=== PATIENT | female | born 1935 | race Caucasian/White ===

== ENCOUNTER → 2016-09-28 | Outpatient (CLI) | payer BC ==
[~2016-09-28] MED LIST: ASPI-232 PO; CHOL100010 PO; DICL1GEL12 TOP; GABA-113 PO; GLC500 PO; HYDR-4380 PO; MTR800 PO; NXM/40 PO; PRM/45 PO; SIMV40TA2 PO; SITA100T3 PO; TRIA37.5 PO
== END | disposition home or self-care (01) ==
LOC: C.RDSM 07:00
PROVIDERS: ATTEND Physical Medicine & Rehabilitation Sports Medicine
DX: M17.11 Unilateral primary osteoarthritis, right knee (principal)

== ENCOUNTER 2017-06-29 10:30 | Emergency (ER) | payer BC ==
[~2017-06-29] VITALS: Ht 157.5 cm; Wt 74.0 kg
[2017-06-29 10:38] VITALS: TEMP 36.6; Ht 157.5 cm; Wt 74.0 kg
[2017-06-29 11:09] LABS: HEMATOCRIT 31.7 % (37-47); HEMOGLOBIN 9.8 g/dL (12.0-16.0); MEAN CELL VOLUME 79.4 fL (80-100); MEAN CORPUSCULAR HEMOGLOBIN 24.6 pg (25-34); MEAN CORPUSCULAR HGB CONC 30.9 g/dl (32-36); MEAN PLATELET VOLUME 11.4 fL (7.4-10.4); PLATELET COUNT 213 K/uL (130-400); RED CELL DISTRIBUTION WIDTH CV 16.5 % (11.5-14.5); WHITE BLOOD COUNT 3.79 K/uL (4.8-10.8)
[2017-06-29 11:30] LABS: BASO % 0.3 %; BASO ABS # 0.01 K/uL (0-0.2); EOS % 0.3 %; EOS ABS # 0.01 K/uL (0-0.5); LYMPH % 25.3 %; LYMPH ABS # 0.96 K/uL (1.2-3.4); MONO % 8.2 %; MONO ABS # 0.31 K/uL (0.11-0.59); NEUT % 65.9 %
[2017-06-29 11:34] LABS: ALBUMIN 3.1 gm/dl (3.4-5.0); CALCIUM 7.5 mg/dl (8.5-10.1); CREATININE 1.04 mg/dl (0.60-1.20); POTASSIUM 2.5 mmol/L (3.5-5.1); TOTAL PROTEIN 6.8 gm/dl (6.4-8.2)
[2017-06-29] MEDS ORDERED: METOCLOPRAMIDE HCL INJ 5 MG/ML 2 ML VIAL IV. STA (12:23)
[2017-06-29] MEDS ORDERED: CALCIUM GLUCONATE 10% 10 ML VIAL IV STA (12:23)
[2017-06-29] MEDS ORDERED: SODIUM CHLORIDE 0.9% 1000ML 1,000 ML IV STA (12:23)
[2017-06-29] MEDS ORDERED: POTASSIUM CHLORIDE 10 MEQ / 100ML WTR IV STA (12:23)
[2017-06-29] MEDS ORDERED: POTASSIUM CHLORIDE 20 MEQ TABCR PO STA (12:23)
[2017-06-29] MEDS ORDERED: CHOL1000 PO (12:26)
[2017-06-29] MEDS ORDERED: AMLO-110 PO (12:27)
[2017-06-29] MEDS ORDERED: OPTIRAY 320 IV PRN (12:45)
--- NOTE | 2017-06-29 13:35 | DIAGNOSTIC IMAGING REPORT ---
CT OF THE ABDOMEN AND PELVIS WITH CONTRAST CLINICAL HISTORY: Bilateral flank pain, nausea and vomiting. COMPARISON STUDY: CT of the abdomen and pelvis January 17, 2016. TECHNIQUE: Following IV administration of 90 mL of Optiray-320, axial images of the abdomen and pelvis were obtained from the lung bases to the proximal femurs. Images were reviewed in the axial, sagittal, and coronal planes. IV contrast was administered without complication. A dose lowering technique was utilized adhering to the principles of ALARA. CT DOSE: 546.74 mGy.cm FINDINGS: The liver is cirrhotic and moderately enlarged. Innumerable hypodense hepatic lesions likely reflect cysts or biliary hamartomas. Sensitivity for detection of hypervascular lesions is diminished on this portal venous phase exam but no suspicious hepatic lesions are identified. 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 There is no hydronephrosis. The spleen, adrenal glands and pancreas are unremarkable. There is no biliary or pancreatic ductal dilatation status post cholecystectomy. The appendix is normal. There is colonic diverticulosis without evidence for acute diverticulitis. A 2 cm water attenuation focus along the posterior aspect the bladder is unchanged. This could reflect a small bladder diverticulum. There are no suspicious osseous lesions. IMPRESSION: 1. No acute process within the abdomen or pelvis. 2. Cirrhotic liver. 3. Innumerable hypodense hepatic lesions which are similar to prior exam. 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 4. Colonic diverticulosis without evidence for acute diverticulitis. Electronically signed by: Hussain Saldana M.D. 06/29/2017 1:34 PM Dictated Date/Time: 06/29/2017 1:25 PM
[2017-06-29] MEDS ORDERED: CEFTRIAXONE SOD INJ 1 GM ADDVIAL IV STA (14:45)
[2017-06-29] MEDS ORDERED: TRIAMTERENE/HCTZ 37.5/25MG CAP PO STA (15:15)
[2017-06-29] MEDS ORDERED: AMLODIPINE BESYLATE 5 MG TAB PO ONE (15:15)
[2017-06-29] MEDS ORDERED: MAGNESIUM OXIDE 400 MG TAB PO STA (15:49)
[2017-06-29] MEDS ORDERED: CEPH-571 PO (16:04)
[2017-06-29] MEDS ORDERED: ONDA4TAB65 PO (16:04)
--- NOTE | 2017-06-29 16:05 | EMERGENCY ROOM VISIT NOTE ---
History Report prepared by Ade: Ulises Box Under the Supervision of: Dr. Zion Conner M.D. First contact with patient: 11:51 Chief Complaint: ABDOMINAL PAIN Stated Complaint: ILLNESS Nursing Triage Summary: pt to the ED via EMS from home with c/o n/v/d with upper abd pain since wednesday pt has a hx of DM and has been trying home OTC meds to help with GI sx with no relief per EMS abd soft History of Present Illness The patient is a 81 year old white female with a past medical history of ( insulin and medication dependent) Type II Diabetes and cholecystectomy who presents to the ED with a cc of constant upper abdominal pain beginning two days ago. She rates her pain as a 6/10 in severity. Positive nausea, vomiting, diarrhea (x2 days). Vomiting and diarrhea improved yesterday, nausea has persisted. No known sick contacts. No recent antibiotic use. No use of stream or well water. No recent trauma. No flu shot this year. Negative bloody stool, or bloody vomit. Patient drinks alcohol occasionally - most recent drink three days ago. Source of History: patient Onset: Two days ago Position: abdomen (upper) Symptom Intensity: 6/10 Timing: constant Associated Symptoms: + nausea, + vomiting (improved yesterday), + diarrhea ( improved yesterday), No hematochezia Note: Negative: bloody vomit. Review of Systems See HPI for pertinent positives and negatives. A total of ten systems were reviewed and were otherwise negative. Past Medical & Surgical Medical Problems: (1) Diabetes (2) Incisional hernia Surgical Problems: (1) S/P cholecystectomy Family History No pertinent family history stated. Social History Smoking Status: Never Smoker Current/Historical Medications Scheduled Amlodipine (Norvasc), 5 MG PO DAILY Aspirin (Aspir-81), 81 MG PO DAILY Cephalexin (Keflex), 1 CAP PO BID Cholecalciferol (Vitamin D3), 1,000 UNITS PO DAILY Esomeprazole Magnesium (Nexium), 40 MG PO HS Estrogens, Conjugated (Premarin), 0.9 MG PO DAILY Gabapentin (Neurontin), 300 MG PO TID Ibuprofen (Ibuprofen), 800 MG PO TID Metformin HCl (Metformin HCl), 1,000 MG PO BID Simvastatin (Zocor), 40 MG PO QPM Sitagliptin Phosphate (Januvia), 100 MG PO DAILY Triamterene/Hctz (Dyazide 37.5MG/25MG), 1 TAB PO DAILY Scheduled PRN Diclofenac Sodium (Topical) (Voltaren 1% Top Gel), 100 GM TOP BID PRN for Pain Ondansetron Hcl (Zofran), 1 TAB PO Q6H PRN for Nausea Allergies Coded Allergies: No Known Allergies (Unverified , 06/29/17) Physical Exam Vital Signs Date Time Temp Pulse Resp B/P (MAP) Pulse Ox O2 Delivery O2 Flow Rate FiO2 06/29/17 16:30 78 18 200/99 96 Room Air 06/29/17 15:03 74 18 196/86 95 Room Air 06/29/17 13:33 72 18 188/67 94 Room Air 06/29/17 13:14 77 06/29/17 12:38 74 16 171/74 95 Room Air 06/29/17 10:38 36.6 78 16 177/66 94 Room Air Physical Exam GENERAL: Awake, alert, well-appearing, NAD HENT: Normocephalic, atraumatic. EYES: Normal conjunctiva. Sclera non-icteric. NECK: Supple. No nuchal rigidity. FROM. RESPIRATORY: CTAB, no rhonchi, wheezing, crackles CARDIAC: RRR, no MRG ABDOMEN: Soft, BS+. Mild left sided abdominal discomfort. Non-surgical abdomen. MSK: No chest wall TTP, no LE edema NEURO: GCS 15, CN 2-12 intact, moves all 4s on command SKIN: No rash or jaundice noted. Medical Decision & Procedures ER Provider Diagnostic Interpretation: Radiology results as stated below per my review and radiologist interpretation: CT OF THE ABDOMEN AND PELVIS WITH CONTRAST FINDINGS: The liver is cirrhotic and moderately enlarged. Innumerable hypodense hepatic lesions likely reflect cysts or biliary hamartomas. Sensitivity for detection of hypervascular lesions is diminished on this portal venous phase exam but no suspicious hepatic lesions are identified. 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 There is no hydronephrosis. The spleen, adrenal glands and pancreas are unremarkable. There is no biliary or pancreatic ductal dilatation status post cholecystectomy. The appendix is normal. There is colonic diverticulosis without evidence for acute diverticulitis. A 2 cm water attenuation focus along the posterior aspect the bladder is unchanged. This could reflect a small bladder diverticulum. There are no suspicious osseous lesions. IMPRESSION: 1. No acute process within the abdomen or pelvis. 2. Cirrhotic liver. 3. Innumerable hypodense hepatic lesions which are similar to prior exam. 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 4. Colonic diverticulosis without evidence for acute diverticulitis. Electronically signed by: Hussain Saldana M.D. 06/29/2017 1:34 PM Laboratory Results 06/29/17 10:50 Red Blood Count 3.99, Mean Corpuscular Volume 79.4, Mean Corpuscular Hemoglobin 24.6, Mean Corpuscular Hemoglobin Concent 30.9, Mean Platelet Volume 11.4, Neutrophils (%) (Auto) 65.9, Lymphocytes (%) (Auto) 25.3, Monocytes (%) (Auto) 8.2, Eosinophils (%) (Auto) 0.3, Basophils (%) (Auto) 0.3, Neutrophils # (Auto) 2.50, Lymphocytes # (Auto) 0.96, Monocytes # (Auto) 0.31, Eosinophils # (Auto) 0.01, Basophils # (Auto) 0.01 06/29/17 10:50 Test 06/29/17 10:50 06/29/17 13:43 White Blood Count 3.79 K/uL (4.8-10.8) Red Blood Count 3.99 M/uL (4.2-5.4) Hemoglobin 9.8 g/dL (12.0-16.0) Hematocrit 31.7 % (37-47) Mean Corpuscular Volume 79.4 fL (80-100) Mean Corpuscular Hemoglobin 24.6 pg (25-34) Mean Corpuscular Hemoglobin Concent 30.9 g/dl (32-36) Platelet Count 213 K/uL (130-400) Mean Platelet Volume 11.4 fL (7.4-10.4) Neutrophils (%) (Auto) 65.9 % Lymphocytes (%) (Auto) 25.3 % Monocytes (%) (Auto) 8.2 % Eosinophils (%) (Auto) 0.3 % Basophils (%) (Auto) 0.3 % Neutrophils # (Auto) 2.50 K/uL (1.4-6.5) Lymphocytes # (Auto) 0.96 K/uL (1.2-3.4) Monocytes # (Auto) 0.31 K/uL (0.11-0.59) Eosinophils # (Auto) 0.01 K/uL (0-0.5) Basophils # (Auto) 0.01 K/uL (0-0.2) RDW Standard Deviation 48.0 fL (36.4-46.3) RDW Coefficient of Variation 16.5 % (11.5-14.5) Immature Granulocyte % (Auto) 0.0 % Immature Granulocyte # (Auto) 0.00 K/uL (0.00-0.02) Hypochromasia PRESENT Anion Gap 11.0 mmol/L (3-11) Est Creatinine Clear Calc Drug Dose 41.3 ml/min Estimated GFR () 59.2 Estimated GFR (Non- 51.1 BUN/Creatinine Ratio 29.6 (10-20) Calcium Level 7.5 mg/dl (8.5-10.1) Magnesium Level 1.7 mg/dl (1.8-2.4) Total Bilirubin 0.3 mg/dl (0.2-1) Aspartate Amino Transf (AST/SGOT) 273 U/L (15-37) Alanine Aminotransferase (ALT/SGPT) 178 U/L (12-78) Alkaline Phosphatase 109 U/L (45-117) Total Protein 6.8 gm/dl (6.4-8.2) Albumin 3.1 gm/dl (3.4-5.0) Globulin 3.7 gm/dl (2.5-4.0) Albumin/Globulin Ratio 0.8 (0.9-2) Lipase 151 U/L (73-393) Beta-Hydroxybutyric Acid 14.05 mg/dL (0.2-2.81) Urine Color YELLOW Urine Appearance CLOUDY (CLEAR) Urine pH 5.5 (4.5-7.5) Urine Specific [place] 1.028 (1.000-1.030) Urine Protein 2+ (NEG) Urine Glucose (UA) 3+ (NEG) Urine Ketones 2+ (NEG) Urine Occult Blood NEG (NEG) Urine Nitrite NEG (NEG) Urine Bilirubin NEG (NEG) Urine Urobilinogen NEG (NEG) Urine Leukocyte Esterase NEG (NEG) Urine WBC (Auto) >30 /hpf (0-5) Urine RBC (Auto) 0-4 /hpf (0-4) Urine Hyaline Casts (Auto) 0 /lpf (0-5) Urine Epithelial Cells (Auto) 0-5 /lpf (0-5) Urine Bacteria (Auto) 4+ (NEG) Urine Yeast (Auto) (NONE PRSENT) Laboratory results reviewed by me Medications Administered Medications (Trade) Dose Ordered Sig/Allan Route Start Time Stop Time Status Last Admin Dose Admin Sodium Chloride 1,000 ml @ 999 mls/hr Q1H1M STAT IV 06/29/17 12:23 06/29/17 13:23 DC 06/29/17 12:45 999 MLS/HR Potassium Chloride (Klor-Con Tab) 40 meq NOW STAT PO 06/29/17 12:23 06/29/17 12:27 DC 06/29/17 12:52 40 MEQ Metoclopramide HCl (Reglan Inj) 10 mg NOW STAT IV. 06/29/17 12:23 06/29/17 12:27 DC 06/29/17 12:45 10 MG Calcium Gluconate (Calcium Gluconate 10%) 2,000 mg NOW STAT IV 06/29/17 12:23 06/29/17 12:27 DC 06/29/17 12:45 2,000 MG Potassium Chloride (Kcl 10 Meq / Wtr) 10 meq NOW STAT IV 06/29/17 12:23 06/29/17 12:27 DC 06/29/17 12:45 10 MEQ Ceftriaxone Sodium (Rocephin Inj) 1 gm NOW STAT IV 06/29/17 14:45 06/29/17 14:46 DC 06/29/17 15:13 1 GM Amlodipine Besylate (Norvasc Tab) 5 mg NOW ONCE PO 06/29/17 15:15 06/29/17 15:21 DC 06/29/17 15:54 5 MG Triamterene/HCTZ (Dyazide 37.5/25 Mg Cap) 1 cap ONE STAT PO 06/29/17 15:15 06/29/17 15:21 DC 06/29/17 15:54 1 CAP Magnesium Oxide (Mag-Ox Tab) 800 mg ONE STAT PO 06/29/17 15:49 06/29/17 15:50 DC 06/29/17 16:00 800 MG Ondansetron HCl (Zofran Odt) 4 mg NOW STAT PO 06/29/17 16:07 06/29/17 16:15 DC 06/29/17 16:46 4 MG ED Course 1204: The patient was evaluated in room C9. A complete history and physical exam was performed. 1327: I reassessed the patient. She feels better. She will PO challenge. 1625: I reevaluated the patient. She has tolerated PO. Discussed results and discharge instructions: she verbalized understanding and agreement. The patient is ready for discharge. Medical Decision The patient is a 81 year old white female with a past medical history of ( insulin and medication dependent) Type II Diabetes and cholecystectomy who presents to the ED with a cc of constant upper abdominal pain beginning two days ago. Differential diagnosis: Etiologies such as appendicitis, diverticulitis, PUD, biliary pathology, UTI, pancreatitis, obstruction, mesenteric ischemia, aortic pathology, infections, inflammatory bowel disease, renal colic, as well as others were entertained. Patient was seen and evaluated the bedside. Patient had complained of some upper abdominal discomfort along with some associated nausea and vomiting. Patient states that her nausea improved in route when she was given some Zofran. Patient did have blood work completed along with CT of the abdomen pelvis IVF, and antiemetics. Patient's blood work did show that the patient had mild leukopenia. Patient does have anemia but this appears chronic and fairly stable as her last hemoglobin was around 11 2 years prior, and today it is in the high nines. Patient did have noted hypokalemia hyperglycemia, hypocalcemia. Her lecture lites were repleted. Patient was given with p.o. and IV potassium. Magnesium was also checked. This was low and the patient was repleted with magnesium as well. Patient did have some hyperglycemia but the patient was not taking her medications for diabetes. The patient has a normal bicarb and anion gap is normal less likely DKA. Patient did receive IV fluids. Patient did have subsequent checks of p.o. intolerance. Patient was able tolerate p.o. several times. The patient's UA was questionable for a UTI as the patient was given Rocephin. Patient was able to tolerate her by mouth medications at the bedside. Patient does have elevated LFTs and the patient's CT did show liver cirrhosis. This appears somewhat chronic in nature. Patient does not have elevated bilirubin. Patient does not have a positive Prince sign and I do not believe that she needs further evaluation with a gallbladder ultrasound. The patient's LFTs have been chronic in the past. I did discuss the patient that she should need a recheck and to watch for signs of jaundice. She was also counseled on stopping her cholesterol medication being her statin, and avoiding alcohol and Tylenol use. Patient is agreeable to the plan of care and the patient was given outpatient prescriptions for antibiotics as well as antiemetics. Patient was told to return if she had worsening symptoms. I believe that the patient is suitable for outpatient follow-up and treatment at this time as the patient is able tolerate p.o. and her lecture lites have been repleted along with her infection being treated. Patient was given strict follow-up, discharge, and return precautions. All questions were answered. Patient was deemed suitable for outpatient follow-up at this time. Patient agreed with the plan of care and was safely discharged home. Medication Reconcilliation Current Medication List: was personally reviewed by me Blood Pressure Screening Patient's blood pressure: Elevated blood pressure Blood pressure disposition: Referred to PCP Impression Primary Impression: Acute gastroenteritis Additional Impressions: Anemia Hypokalemia Hypocalcemia Hypomagnesemia Hyperglycemia UTI (urinary tract infection) Scribe Attestation The scribe's documentation has been prepared under my direction and personally reviewed by me in its entirety. I confirm that the note above accurately reflects all work, treatment, procedures, and medical decision making performed by me. Departure Information Dispostion Home / Self-Care Prescriptions Ondansetron Hcl (ZOFRAN) 4 Mg Tab 1 TAB PO Q6H Y for Nausea, #10 TAB 1 Refill Prov: Zion Conner M.D. 06/29/17 Cephalexin (KEFLEX) 500 Mg Cap 1 CAP PO BID for 7 Days, #14 CAP Prov: Zion Conner M.D. 06/29/17 Referrals Martinez Michaud M.D. (PCP) Patient Instructions ED Diet High Potassium, ED Hypocalcemia, ED UTI Cystitis Female, Hypokalemia Dc , Hypomagnesemia Dc, My [facility] Additional Instructions Please return to the emergency department if you have worsening or recurrent symptoms not amenable to at-home treatment. Please call for a follow-up appointment with her primary care physician. Please take your medications as prescribed. If you have other concerns and/or complaints please feel free to also call your primary care physician's office or return the ED for further evaluation, management, and treatment. Take your medications as prescribed. If taking an antibiotic consider taking a probiotic and/or eating yogurt, but at the least, please take with food as it can cause upset stomach. Your liver enzymes were elevated today. They have been elevated in the past. Please call your PCP for repeat liver function testing. In the mean time, please avoid alcohol and tylenol. Stop taking your cholesterol medicine until you see your PCP. You did have low potassium, calcium, and magnesium you may take a daily supplement or increases in your diet. Continue a more bland diet and is your able you may advance it as tolerated. Consider starting with clear liquids, soups, and broths. You have been examined and treated today on an emergency basis only. This is not a substitute for, or an effort to provide, complete comprehensive medical care. It is impossible to recognize and treat all injuries or illnesses in a single emergency department visit. It is therefore important that you follow up closely with [facility], your PCP, and/or your specialist(s). Call as soon as possible for an appointment. Thank you for your time and consideration. I look forward to speaking with you again soon. Please don't hesitate to call us if you have any questions. Problem Qualifiers Additional Impressions: Anemia Anemia type: unspecified type Qualified Codes: D64.9 - Anemia, unspecified UTI (urinary tract infection) Urinary tract infection type: acute cystitis Hematuria presence: without hematuria Qualified Codes: N30.00 - Acute cystitis without hematuria
[2017-06-29] MEDS ORDERED: ONDANSETRON 4MG OD TAB PO STA (16:07)
[2017-06-29 16:30] VITALS: BP 200/99; PULSE 78; O2SAT 96
== END 2017-06-29 16:49 | disposition home or self-care (01) ==
LOC: EDBD 10:30 → C.EDC 10:32
DX: K52.9 Noninfective gastroenteritis and colitis, unspecified (principal); D64.9 Anemia, unspecified; E11.65 Type 2 diabetes mellitus with hyperglycemia; E87.6 Hypokalemia; E83.51 Hypocalcemia; E83.42 Hypomagnesemia; N39.0 Urinary tract infection, site not specified; Z79.899 Other long term (current) drug therapy; Z79.82 Long term (current) use of aspirin; Z79.84 Long term (current) use of oral hypoglycemic drugs; Z90.49 Acquired absence of other specified parts of digestive tract

== ENCOUNTER 2024-06-11 13:37 | Inpatient (IN) ==
[2024-06-11 14:50] LABS: Basophils # (auto) 0.07 K/uL (0.00-0.20); Basophils % (auto) 0.6 %; Eosinophils # (auto) 0.06 K/uL (0.00-0.50); Eosinophils % (auto) 0.5 %; Hematocrit (blood only) 47.6 % (37.0-47.0); Hemoglobin 15.7 g/dl (12.0-16.0); Immature Granulocytes # (auto) 0.06 K/uL (0.01-0.20); Immature Granulocytes % (auto) 0.5 %; Lymphocytes # (auto) 1.85 K/uL (1.20-3.40); Mean Corpuscular Hemoglobin 29.7 pg (25.0-34.0); Mean Corpuscular Volume 90.2 fL (80.0-100.0); Mean Platelet Volume 11.3 fL (9.4-12.4); Monocytes # (auto) 0.51 K/uL (0.11-0.59); Monocytes % (auto) 4.1 %; Neutrophils # (auto) 9.75 K/uL (1.40-6.50); Neutrophils % (auto) 79.3 %; Platelet Count 294 K/uL (130-400); RDW Coefficient of Variation 13.7 % (11.5-14.5); RDW Standard Deviation 44.4 fL (36.4-46.3); Red Blood Count 5.28 M/uL (4.20-5.40)
[2024-06-11] MEDS: SODIUM CHLORIDE 0.9% 1,000 ML IV SCH (14:50)
[2024-06-11] MEDS: SODIUM CHLORIDE 0.9% 500 ML IV ONE (14:50)
[2024-06-11] MEDS: ACETAMINOPHEN 1,000 MG/100 ML VIAL IV STA (14:51)
[2024-06-11] MEDS: ONDANSETRON INJ 2 MG/ML 2 ML VIAL IV STA (14:51)
--- NOTE | 2024-06-11 14:52 | Emergency Department Note ---
Impression & Plan DKA (diabetic ketoacidosis), Generalized weakness, Abdominal pain, LLQ (left lower quadrant), Acute dehydration, Colitis, Cystitis, Hypertension ED Provider Note NAME: BRENDON REDDY AGE: 88 SEX: Female INFORMANT: Patient and family ED PROVIDER(S): Morgan Pascual MD CHIEF COMPLAINT: Illness PLAN: Disposition: Admitted Outpatient prescription management: none Referral: None MEDICAL DECISION MAKING: Patient presented because of generalized illness. She had abdominal discomfort. Workup was initiated. She was hydrated with normal saline and did receive a total of 1.5 L. The patient had a leukocytosis on CBC. Chemistry panel revealed findings consistent with DKA. Potassium was borderline so she did receive IV potassium and her maintenance fluids were changed to D5 half-normal saline with 20 of K after discussion with ED pharmacist. Insulin protocol was ordered as well. Patient had a borderline elevation of troponin but no acute ischemia on ECG. Urinalysis was concerning for infection and the patient was treated with IV Rocephin. CT imaging showed a cystitis as well as possible colitis. Stool studies were ordered but are pending. Patient was reassessed and was doing well. She did receive IV Tylenol as well as IV hydralazine and Zofran. Further evaluation and management will be necessary in the hospital. Patient and family in agreement. [facility] with [facility]. Patient was evaluated in the ER and admitted for further management. Care/management discussed with: tax manager public Level of care consideration(s): After review of the information above and other included data, I feel the patient requires escalation of care to admission Triage Nursing notes: reviewed and agree them. Vital Signs: reviewed and remarkable for hypertension Additional History obtained from: Family. They note that she is not doing well at home over the last several days. Chronic Medical/Social Conditions affecting care: DKA Prior/ Outside/ External records reviewed: none Differential Diagnosis: Infection, dehydration, metabolic abnormality, hypo/hyperglycemia, electrolyte disturbance, anemia, diverticulitis, colitis, UTI, kidney stone, cardiac sources, intracerebral event, toxicologic, neurologic, as well as other pathologies. Diagnostics, independently interpreted by me: EC-lead ECG reveals a sinus rhythm with PACs at 96 bpm. Bigeminy. Right bundle branch block. Left posterior fascicular block present. Cardiac Monitoring: Cardiac monitoring ordered by me: The patient was placed on continuous cardiac monitoring and observed. It revealed a sinus rhythm with PVCs at 94 bpm. Medical decision rules: none Imaging studies: CT scan of the abdomen pelvis reveals a colitis and cystitis. Chest x-ray negative for acute process. HPI: 88 year old Female arrives for evaluation of illness. This started this last week and is worsening. The patient also notes the following associated symptoms, generalized weakness, poor appetite, nausea, vomiting, diarrhea, fevers, chills,left flank pain, left lower abdominal pain. Patient says she has not been able to take any of her regular medications over the last couple days.. The patient has found no relieving factors. Current pain is rated as 6/10. Patient recently had a suprapubic catheter placed. Pt denies LOC, headache, diaphoresis, visual changes, neck pain, chest pain, breathing difficulties, nausea, vomiting, abdominal pain, melena, hematochezia, urinary symptoms, numbness, lymphadenopathy, rash, or other complaints. PAST MEDICAL HISTORY: See Below, hypertension, diabetes PAST SURGICAL HISTORY: See Below, suprapubic catheter SOCIAL HISTORY: See Below, retired HOME MEDICATIONS: See Below ALLERGIES: See Below VITALS: See Below PHYSICAL EXAMINATION: GENERAL: Awake, alert, uncomfortable-appearing, in no distress HENT: Normocephalic, atraumatic. Oropharynx unremarkable except for dry mucous membranes. EYES: Normal conjunctiva. Sclera non-icteric. NECK: Inspection normal. Non-tender. Supple. No nuchal rigidity. FROM. No masses. RESPIRATORY: Clear to auscultation. No wheezes. No rales. Normal respiratory effort. CARDIAC: Normal rate. Normal rhythm. No murmurs. No rubs. Extremities warm and well perfused. Pulses equal. No JVD. GI: Soft, non-distended. Left lower quadrant tenderness to palpation. No rebound or guarding. No masses. MUSCULOSKELETAL: Atraumatic. There is left CVA tenderness to palpation. No joint edema. LOWER EXTREMITIES: Calves are equal size bilaterally and non-tender. No edema. No discoloration. NEURO: Normal sensorium. No sensory or motor deficits noted. SKIN: No rash or jaundice noted. PROCEDURES: none CRITICAL CARE: I have personally spent 35 minutes of critical care time in the direct management of this patient. This includes bedside care, interpretation of diagnostic studies, and testing, discussion with consultants, patient, and family members, and other required patient management activities. These minutes are in excess of all separately billable procedures. OBSERVATION NOTE: none Past Med/Surg History Problem List (Updated 06/11/24 @ 16:51 by Morgan Pascual MD) Hypertension (Acute) Cystitis (Acute) Colitis (Acute) DKA (diabetic ketoacidosis) (Acute) Colitis DKA (diabetic ketoacidosis) Acute dehydration (Acute) Abdominal pain, LLQ (left lower quadrant) (Acute) Generalized weakness (Acute) Constipation (Acute) Fecal impaction in rectum (Acute) Urge incontinence Ureteral stricture, right Encounter for pre-operative examination Nocturia Incomplete bladder emptying Urinary frequency Medical History Acid reflux Chronic kidney disease, stage 3 follows w/ Dr Mayorga Dyslipidemia Fatty liver Enlarged Powell catheter in place History of anemia History of kidney stones Hypertension Neuropathy Non-alcoholic cirrhosis Under surveillance, annual ultrasounds Stable, "no changes" Seasonal allergies Trouble swallowing Occasional esophageal spasms Type 2 diabetes mellitus IDDM Ureteral stricture Urinary retention Surgical History History of ankle surgery Left, fusion History of biopsy of bladder History of bladder suspension procedure History of carpal tunnel surgery of right wrist History of colonoscopy "has twisted colon" History of esophagogastroduodenoscopy (EGD) History of gynecologic surgery Vaginal prolapse repair History of hysterectomy History of tonsillectomy Incisional hernia (2014) Repair S/P cholecystectomy Status post insertion of sacral nerve stimulator Stage I, 11/15/23 [facility]- removed 11/2023 Family History Mother Family history of diabetes mellitus Other No family history of adverse response to anesthesia Social History Smoking Status: Never smoker Second Hand Exposure: No; Do You Dip or Chew Tobacco: No; Hx Alcohol Use: No Hx Substance Use: No Preferred Language: Tajik Communication Ability: Effective Visual Impairment: No Limitations Hearing Ability: Normal Instructor Hairspring Required: No Beliefs That Will Affect Care: None marital status: Current Living Situation: Alone current occupational status: retired How many Children do You have: 2 How many Children do You have Comment: 2 children and a step son, none local to assist with care. is also unable to assist with care Feels Safe at Home: Yes Diet: regular Assistive Devices: Wheelchair Allergies Allergies Allergy/AdvReac Type Severity Reaction Status Date / Time metformin AdvReac Unknown Diarrhea Verified 05/29/24 06:01 Home Meds Home Medications Medication Instructions Recorded Confirmed amlodipine 5 mg tablet 5 mg PO BID 08/18/18 06/11/24 cholecalciferol (vitamin D3) 25 1,000 unit PO HS 08/18/18 06/11/24 mcg (1,000 unit) tablet (Vitamin D3) clonidine HCl 0.1 mg tablet 0.1 mg PO BID 08/18/18 06/11/24 simvastatin 40 mg tablet 40 mg PO HS 08/18/18 06/11/24 sitagliptin phosphate 100 mg 100 mg PO QAM 08/18/18 06/11/24 tablet (Januvia) conjugated estrogens 1.25 mg 1.25 mg PO HS 11/16/18 06/11/24 tablet (Premarin) glimepiride 1 mg tablet 0.5 mg PO QAM 11/16/18 06/11/24 tirzepatide 2.5 mg/0.5 mL 2.5 mg subcut WK 09/12/23 06/11/24 subcutaneous pen injector (Mounjaro) insulin glargine 100 unit/mL 10 unit subcut QAM 11/03/23 06/11/24 subcutaneous solution (Lantus U-100 Insulin) insulin glargine 100 unit/mL 20 unit subcut HS 11/03/23 06/11/24 subcutaneous solution (Lantus U-100 Insulin) ibuprofen 200 mg tablet 200 mg PO BID 06/03/24 06/11/24 Previous Rx's Medication Instructions Recorded losartan 50 mg tablet 50 mg PO QAM #90 tabs 01/04/24 esomeprazole magnesium 40 mg 40 mg PO BID #180 caps 01/19/24 capsule,delayed release (Nexium) Results & Data (ED) Vital Signs Vital Signs - 24 hr 06/11/24 13:29 06/11/24 14:26 06/11/24 14:55 Temperature 36.4 C L Temperature Source Axillary Pulse Rate 96 H 94 H Pulse Rate from SpO2 Sensor Respiratory Rate 24 Respiratory Effort / Characteristics Non-Labored Spontaneous Respiratory Depth Normal Respiratory Pattern Regular Blood Pressure 208/117 H 215/133 H Blood Pressure Mean 147 148 Pulse Oximetry 95 Oxygen Delivery Method Room Air Sepsis Recent Fever Within 48 Hours No Sepsis New/Unexplained Change in Mental Status N/A Sepsis Action Taken by Nursing No Action Required 06/11/24 15:10 06/11/24 15:15 06/11/24 15:21 Temperature Temperature Source Pulse Rate 89 87 Pulse Rate from SpO2 Sensor 89 87 Respiratory Rate 24 28 H Respiratory Effort / Characteristics Respiratory Depth Respiratory Pattern Blood Pressure 207/93 H 193/100 H Blood Pressure Mean 130 131 Pulse Oximetry 96 96 Oxygen Delivery Method Room Air Room Air Sepsis Recent Fever Within 48 Hours Sepsis New/Unexplained Change in Mental Status Sepsis Action Taken by Nursing 06/11/24 16:13 06/11/24 16:15 Temperature Temperature Source Pulse Rate 91 H Pulse Rate from SpO2 Sensor 92 H Respiratory Rate 30 H Respiratory Effort / Characteristics Respiratory Depth Respiratory Pattern Blood Pressure 207/87 H Blood Pressure Mean 168 Pulse Oximetry 98 Oxygen Delivery Method Room Air Sepsis Recent Fever Within 48 Hours Sepsis New/Unexplained Change in Mental Status Sepsis Action Taken by Nursing Laboratory Data 06/11/24 14:29 06/11/24 16:00 Lab Results 06/11/24 06/11/24 06/11/24 Range/Units 14:29 15:25 16:00 WBC 12.30 H (4.8-10.8) K/ul RBC 5.28 (4.20-5.40) M/uL Hgb 15.7 (12.0-16.0) g/dl Hct 47.6 H (37.0-47.0) % MCV 90.2 (80.0-100.0) fL MCH 29.7 (25.0-34.0) pg MCHC 33.0 (32.0-36.0) g/dL RDW Std Deviation 44.4 (36.4-46.3) fL RDW Coeff of Stewart 13.7 (11.5-14.5) % Plt Count 294 (130-400) K/uL MPV 11.3 (9.4-12.4) fL Immature Gran % (Auto) 0.5 % Neut % (Auto) 79.3 % Lymph % (Auto) 15.0 % Yates % (Auto) 4.1 % Eos % (Auto) 0.5 % Baso % (Auto) 0.6 % Neut # (Auto) 9.75 H (1.40-6.50) K/uL Lymph # (Auto) 1.85 (1.20-3.40) K/uL Yates # (Auto) 0.51 (0.11-0.59) K/uL Eos # (Auto) 0.06 (0.00-0.50) K/uL Baso # (Auto) 0.07 (0.00-0.20) K/uL Immature Gran # (Auto) 0.06 (0.01-0.20) K/uL VBG pH 7.29 L (7.36-7.41) VBG pCO2 30 L (38-50) mmHg VBG pO2 42 mmHg VBG HCO3 14 mmol/L VBG O2 Saturation 70.0 % VBG Base Excess -10.8 mEq/L Sodium 139 133 L (136-145) mmol/L Potassium 3.6 3.6 (3.5-5.1) mmol/L Chloride 102 101 (98-107) mmol/L Carbon Dioxide 17 L 15 L (21-32) mmol/L Anion Gap 20 H 17 H (3-11) BUN 22 23 (6-23) mg/dl Creatinine 1.54 H 1.43 H (0.6-1.2) mg/dl Est Cr Clr Drug Dosing 24.4 26.3 ml/min eGFR 32.68 35.72 BUN/Creatinine Ratio 14.3 16.1 (10-20) Glucose 417 H* 412 H* (70-99(Fasting)) mg/dl POC Glucose (70-99) mg/dl Calcium 8.9 8.2 L (8.6-10.3) mg/dl Phosphorus 3.6 (2.5-4.9) mg/dl Magnesium 1.5 L 1.4 L (1.7-2.4) mg/dl Total Bilirubin 0.4 (0.2-1.0) mg/dl AST 26 (13-39) U/L ALT 14 (7-52) U/L Alkaline Phosphatase 109 H (34-104) U/L Troponin I High Sens 29.3 H 33.8 H (0-14) pg/ml Total Protein 8.1 (6.0-8.3) gm/dl Albumin 4.2 (3.4-5.0) gm/dl Globulin 3.9 (2.5-4.0) gm/dl Albumin/Globulin Ratio 1.1 (0.9-2) TSH 6.014 H (0.300-4.500) uIu/ml Free T4 0.72 (0.61-1.60) ng/dl Urine Color Yellow Urine Appearance Turbid A (Clear) Urine pH 6.0 (4.5-7.5) Ur Specific Davey 1.025 (1.000-1.030) Urine Protein 4+ H (Negative) Urine Glucose (UA) 3+ H (Negative) Urine Ketones 4+ H (Negative) Urine Blood 2+ H (Negative) Urine Nitrite Negative (Negative) Urine Bilirubin Negative (Negative) Urine Urobilinogen Negative (Negative) Ur Leukocyte Esterase 1+ H (Negative) Urine WBC (Auto) >50 H (0-5) /hpf Urine RBC (Auto) >20 H (0-2) /hpf U Hyaline Cast (Auto) 11-20 H (0-2) /lpf U Epithel Cells (Auto) 0-2 (0-2) /hpf Urine Bacteria (Auto) 4+ H (None Seen) 06/11/24 Range/Units 16:01 WBC (4.8-10.8) K/ul RBC (4.20-5.40) M/uL Hgb (12.0-16.0) g/dl Hct (37.0-47.0) % MCV (80.0-100.0) fL MCH (25.0-34.0) pg MCHC (32.0-36.0) g/dL RDW Std Deviation (36.4-46.3) fL RDW Coeff of Stewart (11.5-14.5) % Plt Count (130-400) K/uL MPV (9.4-12.4) fL Immature Gran % (Auto) % Neut % (Auto) % Lymph % (Auto) % Yates % (Auto) % Eos % (Auto) % Baso % (Auto) % Neut # (Auto) (1.40-6.50) K/uL Lymph # (Auto) (1.20-3.40) K/uL Yates # (Auto) (0.11-0.59) K/uL Eos # (Auto) (0.00-0.50) K/uL Baso # (Auto) (0.00-0.20) K/uL Immature Gran # (Auto) (0.01-0.20) K/uL VBG pH (7.36-7.41) VBG pCO2 (38-50) mmHg VBG pO2 mmHg VBG HCO3 mmol/L VBG O2 Saturation % VBG Base Excess mEq/L Sodium (136-145) mmol/L Potassium (3.5-5.1) mmol/L Chloride (98-107) mmol/L Carbon Dioxide (21-32) mmol/L Anion Gap (3-11) BUN (6-23) mg/dl Creatinine (0.6-1.2) mg/dl Est Cr Clr Drug Dosing ml/min eGFR BUN/Creatinine Ratio (10-20) Glucose (70-99(Fasting)) mg/dl POC Glucose 389 H* (70-99) mg/dl Calcium (8.6-10.3) mg/dl Phosphorus (2.5-4.9) mg/dl Magnesium (1.7-2.4) mg/dl Total Bilirubin (0.2-1.0) mg/dl AST (13-39) U/L ALT (7-52) U/L Alkaline Phosphatase (34-104) U/L Troponin I High Sens (0-14) pg/ml Total Protein (6.0-8.3) gm/dl Albumin (3.4-5.0) gm/dl Globulin (2.5-4.0) gm/dl Albumin/Globulin Ratio (0.9-2) TSH (0.300-4.500) uIu/ml Free T4 (0.61-1.60) ng/dl Urine Color Urine Appearance (Clear) Urine pH (4.5-7.5) Ur Specific Davey (1.000-1.030) Urine Protein (Negative) Urine Glucose (UA) (Negative) Urine Ketones (Negative) Urine Blood (Negative) Urine Nitrite (Negative) Urine Bilirubin (Negative) Urine Urobilinogen (Negative) Ur Leukocyte Esterase (Negative) Urine WBC (Auto) (0-5) /hpf Urine RBC (Auto) (0-2) /hpf U Hyaline Cast (Auto) (0-2) /lpf U Epithel Cells (Auto) (0-2) /hpf Urine Bacteria (Auto) (None Seen) Administered Medications Insulin Human Regular 250 (units/ Sodium Chloride) 250 mls @ 7 mls/hr IV .Q24H [facility]; Protocol Stop: 07/11/24 15:14 Last Admin: 06/11/24 16:17 Dose: Not Given Documented By: FINN Co-signed By: TITO Admin: 06/11/24 16:09 Dose: 7 units/hr, 7 mls/hr Documented By: FINN Co-signed By: TITO Discontinued Medications Hydralazine HCl (Hydralazine Hcl 20 Mg/Ml Vial) 5 mg IV NOW ONE Stop: 06/11/24 14:53 Last Admin: 06/11/24 14:57 Dose: 5 mg Documented By: FINN Sodium Chloride (Nss) 500 mls @ 999 mls/hr IV .Q31M ONE Stop: 06/11/24 15:15 Last Infusion: 06/11/24 16:18 Dose: Infused Documented By: Admin: 06/11/24 14:50 Dose: 999 mls/hr Documented By: FINN Sodium Chloride (Nss) 1,000 mls @ 125 mls/hr IV .Q8H [facility] Stop: 06/12/24 14:44 Last Admin: 06/11/24 15:57 Dose: Not Given Documented By: FINN Acetaminophen (Ofirmev) 1,000 mg in 100 mls @ 400 mls/hr IV NOW STA Stop: 06/11/24 14:59 Last Infusion: 06/11/24 15:56 Dose: Infused Documented By: Admin: 06/11/24 14:51 Dose: 400 mls/hr Documented By: FINN Potassium Chloride (K Avtar / Wtr) 10 meq in 100 mls @ 100 mls/hr IV ONE ONE Stop: 06/11/24 16:08 Last Infusion: 06/11/24 16:36 Dose: Infused Documented By: Admin: 06/11/24 15:18 Dose: 100 mls/hr Documented By: FINN Sodium Chloride (Nss) 1,000 mls @ 999 mls/hr IV .Q1H1M ONE Stop: 06/11/24 16:13 Last Admin: 06/11/24 15:15 Dose: 999 mls/hr Documented By: FINN Insulin Human Regular (Novolin-R Bolus From Bag) 7 units IV ONE ONE Stop: 06/11/24 15:46 Last Admin: 06/11/24 16:10 Dose: 7 units Documented By: FINN Co-signed By: TITO Guzman (Stat Iv Infusion Titration Per Protocol) 1 each N/A NOW STA Stop: 06/11/24 15:10 Last Admin: 06/11/24 16:17 Dose: Not Given Documented By: FINN Guzman (Dka Goal Range 150-250 Mg/Dl) 1 each N/A ONE ONE Stop: 06/11/24 15:10 Last Admin: 06/11/24 16:17 Dose: Not Given Documented By: FINN Ondansetron HCl (Ondansetron Inj 2 Mg/Ml 2 Ml Vial) 4 mg IV NOW STA Stop: 06/11/24 14:46 Last Admin: 06/11/24 14:51 Dose: 4 mg Documented By: FINN Imaging Data Radiologist's Impression: Chest X-Ray 06/11/24 14:12 Portable chest at 2:53 PM compared to prior dated 11/03/2023. Cardiac size is normal. Minimal subsegmental atelectasis left lung base. Lung sanders otherwise clear. Trace left pleural effusion. No right pleural effusion. Central airways are patent. Impression Minimal pleural-parenchymal changes left lung base. This consists of trace effusion and subsegmental atelectasis. Electronically signed by Gia Corley 06-11-2024 3:09 PM Abdomen/Pelvis CT 06/11/24 14:45 EXAMINATION: CT of the abdomen and pelvis performed without contrast TECHNIQUE: Helical CT images from the lung bases through the symphysis pubis were obtained without contrast. Coronal and sagittal reformatted images were generated at a workstation for further assessment. Dose reduction techniques were achieved by using automatic exposure control and/or adjustment of mA and/or kV according to patient size and/or use of iterative reconstruction technique. COMPARISON: June 03, 2024 HISTORY: Abdominal pain FINDINGS: Lower chest: No consolidation. No pleural effusion or pneumothorax. Liver: Cirrhotic morphology of the liver. Redemonstrated are innumerable cystic lesions. Gallbladder: Cholecystectomy. Spleen: Normal size. Pancreas: No suspicious pancreatic lesions. The pancreatic duct is not dilated. Adrenal glands: No adrenal nodules. Kidneys: No hydronephrosis or obstructing renal stones. Bladder / Pelvic organs: A suprapubic catheter is in place. The urinary bladder wall again appears thickened, and there is mild surrounding inflammatory fat stranding. Bowel: No bowel obstruction. Mild inflammatory fat stranding is seen about the splenic flexure of the large bowel, where there may also be some mild wall thickening. The appendix is unremarkable. Minimal colonic stool. Diffuse mild colonic diverticulosis without diverticulitis. Lymph nodes: No retroperitoneal, mesenteric, or pelvic lymphadenopathy. Peritoneum / Retroperitoneum: No free fluid or air within the abdomen. Vessels: No infrarenal aortic aneurysm. Bones and soft tissues: No suspicious lesion in the bones. IMPRESSION: Mild inflammatory fat stranding about the splenic flexure of the large bowel, suggesting colitis. Given the location, the findings may represent ischemic colitis. There is minimal colonic stool. Continued wall thickening and inflammatory fat stranding about the urinary bladder, which may be seen with cystitis. Cirrhosis. Electronically signed by Elie Boggs 06-11-2024 3:29 PM Discharge Plan Visit Data Chief Complaint: Illness ED Provider: Morgan Pascual Discharge Problem: DKA (diabetic ketoacidosis), Generalized weakness, Abdominal pain, LLQ (left lower quadrant), Acute dehydration, Colitis, Cystitis, Hypertension Forms Stand Alone Forms: [facility] [employer] Prescriptions Prescriptions: No Action losartan 50 mg tablet 50 mg PO QAM Qty: 90 3RF esomeprazole magnesium [Nexium] 40 mg capsule,delayed release(DR/EC) 40 mg PO BID Qty: 180 5RF glimepiride 1 mg tablet 0.5 mg PO QAM Premarin 1.25 mg tablet 1.25 mg PO HS Mounjaro 2.5 mg/0.5 mL pen injector 2.5 mg subcut WK clonidine HCl 0.1 mg tablet 0.1 mg PO BID amlodipine 5 mg tablet 5 mg PO BID simvastatin 40 mg tablet 40 mg PO HS cholecalciferol (vitamin D3) [Vitamin D3] 1,000 unit Tablet 1,000 unit PO HS Januvia 100 mg tablet 100 mg PO QAM insulin glargine [Lantus U-100 Insulin] 100 unit/mL Solution 10 unit SUBCUT QAM insulin glargine [Lantus U-100 Insulin] 100 unit/mL Solution 20 unit SUBCUT HS ibuprofen [Ibuprofen IB] 200 mg Tablet 200 mg PO BID Referrals Referrals: Aileen Koenig MD [Primary Care Provider] -
[2024-06-11] MEDS: hydrALAZINE HCL 20 MG/ML VIAL IV ONE ×2 (14:57→18:06)
[2024-06-11 15:03] LABS: Albumin Globulin Ratio 1.1 (0.9-2); Albumin Level 4.2 gm/dl (3.4-5.0); BUN Creatinine Ratio 14.3 (10-20); Bilirubin,Total 0.4 mg/dl (0.2-1.0); Calcium 8.9 mg/dl (8.6-10.3); Creatinine Clr Calc Pharmacy 24.4 ml/min; Globulin 3.9 gm/dl (2.5-4.0); Magnesium 1.5 mg/dl (1.7-2.4); Potassium 3.6 mmol/L (3.5-5.1); Total Protein 8.1 gm/dl (6.0-8.3)
[2024-06-11 15:09] LABS: Troponin I High Sensitivity 29.3 pg/ml (0-14)
[2024-06-11] MEDS ORDERED: PHARMACY GLYCEMIC MGMT CONSULT PRN ×2 (15:09→21:05)
--- NOTE | 2024-06-11 15:09 | XRay Report ---
Portable chest at 2:53 PM compared to prior dated 11/03/2023. Cardiac size is normal. Minimal subsegmental atelectasis left lung base. Lung sanders otherwise clear. Trace left pleural effusion. No right pleural effusion. Central airways are patent. Impression Minimal pleural-parenchymal changes left lung base. This consists of trace effusion and subsegmental atelectasis. Electronically signed by Gia Corley 06-11-2024 3:09 PM
[2024-06-11] MEDS: SODIUM CHLORIDE 0.9% 1,000 ML IV ONE (15:15)
[2024-06-11] MEDS: POTASSIUM CHLORIDE / WTR 10 MEQ/100 ML PLCT IV ONE (15:18)
[2024-06-11 15:19] LABS: Thyroid Stimulating Hormone 6.014 uIu/ml (0.300-4.500)
--- NOTE | 2024-06-11 15:29 | CT Scan Report ---
EXAMINATION: CT of the abdomen and pelvis performed without contrast TECHNIQUE: Helical CT images from the lung bases through the symphysis pubis were obtained without contrast. Coronal and sagittal reformatted images were generated at a workstation for further assessment. Dose reduction techniques were achieved by using automatic exposure control and/or adjustment of mA and/or kV according to patient size and/or use of iterative reconstruction technique. COMPARISON: June 03, 2024 HISTORY: Abdominal pain FINDINGS: Lower chest: No consolidation. No pleural effusion or pneumothorax. Liver: Cirrhotic morphology of the liver. Redemonstrated are innumerable cystic lesions. Gallbladder: Cholecystectomy. Spleen: Normal size. Pancreas: No suspicious pancreatic lesions. The pancreatic duct is not dilated. Adrenal glands: No adrenal nodules. Kidneys: No hydronephrosis or obstructing renal stones. Bladder / Pelvic organs: A suprapubic catheter is in place. The urinary bladder wall again appears thickened, and there is mild surrounding inflammatory fat stranding. Bowel: No bowel obstruction. Mild inflammatory fat stranding is seen about the splenic flexure of the large bowel, where there may also be some mild wall thickening. The appendix is unremarkable. Minimal colonic stool. Diffuse mild colonic diverticulosis without diverticulitis. Lymph nodes: No retroperitoneal, mesenteric, or pelvic lymphadenopathy. Peritoneum / Retroperitoneum: No free fluid or air within the abdomen. Vessels: No infrarenal aortic aneurysm. Bones and soft tissues: No suspicious lesion in the bones. IMPRESSION: Mild inflammatory fat stranding about the splenic flexure of the large bowel, suggesting colitis. Given the location, the findings may represent ischemic colitis. There is minimal colonic stool. Continued wall thickening and inflammatory fat stranding about the urinary bladder, which may be seen with cystitis. Cirrhosis. Electronically signed by Elie Boggs 06-11-2024 3:29 PM
[2024-06-11 16:08] LABS: Base Excess VBG -10.8 mEq/L; HCO3 VBG 14 mmol/L; PCO2 VBG 30 mmHg (38-50); PO2 VBG 42 mmHg; pH VBG 7.29 (7.36-7.41)
[2024-06-11 16:09] LABS: T4 Free Thyroxine 0.72 ng/dl (0.61-1.60)
[2024-06-11] MEDS: INSULIN REGULAR 250 UNITS in SODIUM CHLORIDE 0.9% 247.5 ML IV SCH (16:09)
[2024-06-11] MEDS: NovoLIN-R BOLUS FROM BAG IV ONE (16:10)
[2024-06-11] MEDS: DKA GOAL RANGE 150-250 mg/dl ONE (16:17)
[2024-06-11] MEDS: STAT IV Infusion **Titration per Protocol STA (16:17)
--- NOTE | 2024-06-11 16:30 | History & Physical Report ---
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 #DKA glucose >400, anion gap 20 -both resolving may start diet once AG closes - continue insulin drip per protocol until anion gap has closed, then switch to subQ - potassium 3.2 ordered 40meq PO KCl, 20meq K-riders - mag 1.4 repleting q1h BMP until glucose <200, then q6h #UTI UA showing 4+ bacteria, leuks started on CTX 2g in ED Awaiting cultures and sensitivities #HTN chronic, managed by losartan, clonidine, and amlodipine at home given hydralazine while NPO Can resume her home PO meds in AM #Colitis CT abd/pelvis showing colitis affecting splenic flexure Lactate not elevated -> lower concern for ischemia colitis #CKD stage III - creatinine currently 1.3, below baseline of 1.7-1.8 - avoid nephrotoxic meds - dvt prophylaxis heparin as Lovenox is contraindicated, d/c once ambulatory Dispo: pcu-tele Diet: currently NPO while in DKA VTE ppx: heparin 5,000U q12 until ambulatory History of Present Illness Primary Care Provider: Aileen Koenig MD Sirisha is an 88yo female with PMHx DM2 on insulin, 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 States after her suprapubic cath procedure on 05/29/24 she had significant constipation, which she went to the ER for on Friday 06/02 and got an enema which helped clear her out. She felt fine over the next several days but then on Wednesday 06/07 she starting having nausea, vomiting, profuse diarrhea, and weakness rendering her bedridden since then. She was unable to take any of her home medications since 06/07 despite living in an assisted living facility ([facility] [address]). She assumed she had a viral illness and that it would just pass naturally, but it hasn't. When her good friend checked in on her today she felt pt was pale and ill-appearing, and thus took her to the ER. Reportedly the assisted living staff was checking in on her and only giving her water, none of her medications or other food/fluids. At time of interview pt denies significant abdominal pain but appearing short of breath. ER course: given 2.5L saline bolus, 30mEq KCl, insulin reg 250U in saline, ceftriaxone 2g. Allergies Allergy/AdvReac Type Severity Reaction Status Date / Time metformin AdvReac Unknown Diarrhea Verified 05/29/24 06:01 Home Medications Medication Instructions Recorded Confirmed Type amlodipine 5 mg tablet 5 mg PO BID 08/18/18 06/11/24 History cholecalciferol (vitamin D3) 25 1,000 unit PO HS 08/18/18 06/11/24 History mcg (1,000 unit) tablet (Vitamin D3) clonidine HCl 0.1 mg tablet 0.1 mg PO BID 08/18/18 06/11/24 History simvastatin 40 mg tablet 40 mg PO HS 08/18/18 06/11/24 History sitagliptin phosphate 100 mg 100 mg PO QAM 08/18/18 06/11/24 History tablet (Januvia) conjugated estrogens 1.25 mg 1.25 mg PO HS 11/16/18 06/11/24 History tablet (Premarin) glimepiride 1 mg tablet 0.5 mg PO QAM 11/16/18 06/11/24 History tirzepatide 2.5 mg/0.5 mL 2.5 mg subcut WK 09/12/23 06/11/24 History subcutaneous pen injector (Mounjaro) insulin glargine 100 unit/mL 10 unit subcut QAM 11/03/23 06/11/24 History subcutaneous solution (Lantus U-100 Insulin) insulin glargine 100 unit/mL 20 unit subcut HS 11/03/23 06/11/24 History subcutaneous solution (Lantus U-100 Insulin) losartan 50 mg tablet 50 mg PO QAM #90 tabs 01/04/24 06/11/24 Rx esomeprazole magnesium 40 mg 40 mg PO BID #180 caps 01/19/24 06/11/24 Rx capsule,delayed release (Nexium) ibuprofen 200 mg tablet 200 mg PO BID 06/03/24 06/11/24 History Past Med/Surg History Problem List (Updated 06/11/24 @ 18:13 by Morgan Bettencourt DO) Hypertensive urgency Hypertension (Acute) Cystitis (Acute) Colitis (Acute) DKA (diabetic ketoacidosis) (Acute) Colitis DKA (diabetic ketoacidosis) Acute dehydration (Acute) Abdominal pain, LLQ (left lower quadrant) (Acute) Generalized weakness (Acute) Constipation (Acute) Fecal impaction in rectum (Acute) Urge incontinence Ureteral stricture, right Encounter for pre-operative examination Nocturia Incomplete bladder emptying Urinary frequency Medical History Acid reflux Chronic kidney disease, stage 3 follows w/ Dr Mayorga Dyslipidemia Fatty liver Enlarged Powell catheter in place History of anemia History of kidney stones Hypertension Neuropathy Non-alcoholic cirrhosis Under surveillance, annual ultrasounds Stable, "no changes" Seasonal allergies Trouble swallowing Occasional esophageal spasms Type 2 diabetes mellitus IDDM Ureteral stricture Urinary retention Surgical History History of ankle surgery Left, fusion History of biopsy of bladder History of bladder suspension procedure History of carpal tunnel surgery of right wrist History of colonoscopy "has twisted colon" History of esophagogastroduodenoscopy (EGD) History of gynecologic surgery Vaginal prolapse repair History of hysterectomy History of tonsillectomy Incisional hernia (2014) Repair S/P cholecystectomy Status post insertion of sacral nerve stimulator Stage I, 11/15/23 [facility]- removed 11/2023 Family History Mother Family history of diabetes mellitus Other No family history of adverse response to anesthesia Social History Smoking Status: Never smoker Second Hand Exposure: No; Do You Dip or Chew Tobacco: No; Hx Alcohol Use: No Hx Substance Use: No Preferred Language: [place] Communication Ability: Effective Visual Impairment: No Limitations Hearing Ability: Normal Forging Operator Required: No Beliefs That Will Affect Care: None marital status: Current Living Situation: Alone current occupational status: retired How many Children do You have: 2 How many Children do You have Comment: 2 children and a step son, none local to assist with care. is also unable to assist with care Feels Safe at Home: Yes Diet: regular Assistive Devices: Wheelchair Physical Exam Physical Exam: Gen: A&Ox3, appearing in mild respiratory distress HEENT: EOM intact, anicteric sclerae CV: RRR, +s1/s2, soft systolic murmur heard on auscultation, otherwise no m/r/g Resp: tachypneic, good equal air entry b/l, clear to auscultation b/l GI/Abd: hypoactive BS, mild tenderness to palpation of LUQ and LLQ, appearing s lightly distended, suprapubic catheter present with gauze and tape, mild erythema of skin around catheter but no pus, fluid, swelling, or tenderness to palpation Neuro: no facial droop, speech intact Results & Data Results & Data Vital Signs (Past 12 Hours) Vital Signs Temp Pulse Resp BP Pulse Ox O2 Del Method 06/11/24 16:15 91 H 30 H 98 Room Air 06/11/24 16:13 207/87 H 06/11/24 15:21 87 28 H 193/100 H 96 Room Air 06/11/24 15:15 89 24 96 Room Air 06/11/24 15:10 207/93 H 06/11/24 14:55 215/133 H 06/11/24 14:26 94 H 06/11/24 13:29 36.4 C L 96 H 24 208/117 H 95 Room Air Supervising Physician Co-Signing Physician Notes I personally examined the patient and verified guillen points of history and exam, discussed case, and agree with decision making and plan documented by Dr. Bettencourt. Patient is a 88-year-old female with past medical history pertinent for type 2 diabetes on insulin, CKD III, peripheral neuropathy, and urinary retention s/p recent cystoscopy and suprapubic pubic catheter placement (05/29/24) on admission for DKA. Patient reports last dose of insulin 06/06/2024, she is on home Lantus 10 units a.m. and 15 units p.m. Patient with improvement of blood glucose on insulin drip, monitoring electrolytes closely. Initiated on ceftriaxone for UTI, awaiting urine culture. Possible colitis on CT imaging, last episode of diarrhea reported 3 days ago. monitor. Blood pressure elevated, patient receiving hydralazine, will need to restart antihypertensives in the morning. Resident Activity Tracking Resident Involvement: Resident Care Provided Care Provided: Adult Hospital Medicine (1) DKA (diabetic ketoacidosis) Diabetes mellitus complication detail: without coma Diabetes mellitus type: type 2 Qualified Code(s): E11.10 - Type 2 diabetes mellitus with ketoacidosis without coma
[2024-06-11 16:35] LABS: Appearance Urine Turbid (Clear); Bacteria Urine Automated 4+ (None Seen); Bilirubin Urine Negative (Negative); Blood Urine 2+ (Negative); Color Urine Yellow; Epithelial Cell Urine Auto 0-2 /hpf (0-2); Glucose Urine UA 3+ (Negative); Ketones Urine 4+ (Negative); Leukocyte Esterase Urine 1+ (Negative); Nitrite Urine Negative (Negative); Protein Urine 4+ (Negative); RBC Urine Automated >20 /hpf (0-2); Specific Gravity Urine 1.025 (1.000-1.030); Urobilinogen Urine Negative (Negative); WBC Urine Automated >50 /hpf (0-5)
[2024-06-11 16:39] LABS: BUN Creatinine Ratio 16.1 (10-20); Calcium 8.2 mg/dl (8.6-10.3); Creatinine Clr Calc Pharmacy 26.3 ml/min; Magnesium 1.4 mg/dl (1.7-2.4); Phosphorus 3.6 mg/dl (2.5-4.9); Potassium 3.6 mmol/L (3.5-5.1)
[2024-06-11 16:43] LABS: Troponin I High Sensitivity 33.8 pg/ml (0-14)
[2024-06-11 17:18] LABS: Adenovirus PCR Not Detected (NotDetected); Bordetella parapertussis PCR Not Detected (NotDetected); Bordetella pertussis PCR Not Detected (NotDetected); Chlamydia pneumoniae PCR Not Detected (NotDetected); Coronavirus 229E PCR Not Detected (NotDetected); Coronavirus CoV-2 (COVID19)PCR Not Detected (NotDetected); Coronavirus HKU1 PCR Not Detected (NotDetected); Coronavirus NL63 PCR Not Detected (NotDetected); Coronavirus OC43PCR Not Detected (NotDetected); Human Metapneumovirus PCR Not Detected (NotDetected); Influenza A PCR Not Detected (NotDetected); Influenza B PCR Not Detected (NotDetected); Mycoplasma pneumoniae PCR Not Detected (NotDetected); Parainfluenza Virus 1 PCR Not Detected (NotDetected); Parainfluenza Virus 2 PCR Not Detected (NotDetected); Parainfluenza Virus 3 PCR Not Detected (NotDetected); Parainfluenza Virus 4 PCR Not Detected (NotDetected); Respiratory Syncytial VirusPCR Not Detected (NotDetected); Rhinovirus/Enterovirus PCR Not Detected (NotDetected)
[2024-06-11] MEDS: INSULIN ASPART PER UNIT CHARGE SC SCH (17:18)
[2024-06-11] MEDS: cefTRIAXone SODIUM 2,000 MG/50 ML BAG IV STA (17:20)
[2024-06-11] MEDS: PENDING 1/2NSS+20mEq KCL IVF SCH (17:22)
[2024-06-11] MEDS: SODIUM CHLOR 0.45% + 20MEQ KCL 20 MEQ/1,000 ML BAG IV SCH (18:02)
[2024-06-11 19:26] LABS: Calcium 8.2 mg/dl (8.6-10.3); Potassium 3.2 mmol/L (3.5-5.1)
[2024-06-11 19:33] LABS: BUN Creatinine Ratio 16.8 (10-20); Creatinine Clr Calc Pharmacy 28.7 ml/min; Phosphorus 2.6 mg/dl (2.5-4.9)
[2024-06-11] MEDS: MAGNESIUM SULFATE / D5W 1 GM/100 ML BAG IV SCH (19:37)
[2024-06-11 20:55] LABS: BUN Creatinine Ratio 16.5 (10-20); Creatinine Clr Calc Pharmacy 28.3 ml/min; Potassium 3.3 mmol/L (3.5-5.1)
[2024-06-11] MEDS ORDERED: STAT IV Infusion **Titration per Protocol STA (21:05)
[2024-06-11] MEDS ORDERED: INSULIN REGULAR 250 UNITS in SODIUM CHLORIDE 0.9% 247.5 ML IV SCH (21:05)
[2024-06-11] MEDS ORDERED: ONDANSETRON INJ 2 MG/ML 2 ML VIAL IV PRN (21:05)
[2024-06-11] MEDS: PENDING D5 1/2NS+20mEq KCL IVF SCH (21:15)
[2024-06-11 21:22] LABS: Estimated Average Glucose 272 mg/dl; Hemoglobin A1C 11.1 % (4.5-5.6)
[2024-06-11] MEDS: D5W AND 1/2NSS + 20MEQ KCL 20 MEQ/1,000 ML BAG IV SCH (21:32)
[2024-06-11] MEDS: POTASSIUM CHLORIDE CRTAB 20 MEQ TABCR PO STA (21:37)
[2024-06-11] MEDS: HEPARIN SOD 5,000 UNIT/0.5 ML VIAL SQ SCH (21:40)
[2024-06-11] MEDS: POTASSIUM CHLORIDE / WTR 10 MEQ/100 ML PLCT IV SCH (21:45)
[2024-06-11 21:50] LABS: BUN Creatinine Ratio 17.2 (10-20); Creatinine Clr Calc Pharmacy 28.1 ml/min; Potassium 3.3 mmol/L (3.5-5.1)
[2024-06-11 23:20] LABS: Calcium 7.9 mg/dl (8.6-10.3); Potassium 3.9 mmol/L (3.5-5.1)
[2024-06-11 23:25] LABS: BUN Creatinine Ratio 16.9 (10-20); Phosphorus 1.9 mg/dl (2.5-4.9)
[2024-06-12] MEDS: cloNIDine HCL 0.1 MG TAB PO SCH (00:38)
[2024-06-12] MEDS ORDERED: SODIUM PHOSPHATE 3 MMOL/1 ML INFUSION IV STA (00:55)
[2024-06-12] MEDS: SODIUM PHOSPHATE 21 MMOL in SODIUM CHLORIDE 0.9% 500 ML IV ONE (01:36)
[2024-06-12 01:46] LABS: Calcium 8.1 mg/dl (8.6-10.3); Potassium 4.3 mmol/L (3.5-5.1)
[2024-06-12 01:52] LABS: BUN Creatinine Ratio 15.8 (10-20); Creatinine Clr Calc Pharmacy 28.3 ml/min
[2024-06-12] MEDS: LANTUS PER UNIT CHARGE SC STA (02:17)
[2024-06-12] MEDS: [UNRECOGNIZED DRUG - REMARK] ONE (04:26)
[2024-06-12] MEDS: ACETAMINOPHEN 1,000 MG/100 ML VIAL IV PRN (05:46)
[2024-06-12] MEDS: amLODIPine BESYLATE 5 MG TAB PO SCH (05:48)
--- NOTE | 2024-06-12 06:58 | Hospitalist Progress Note ---
Date of Service June 12, 2024 Assessment & Plan (1) DKA (diabetic ketoacidosis): (2) Abdominal pain, LLQ (left lower quadrant): (3) Hypertensive urgency: (4) Colitis: (5) Chronic kidney disease, stage 3: Plan Sirisha is an 88yo female with PMHx DM2 on insulin, CKD 2/2 diabetic nephropathy, peripheral neuropathy, and urinary retention s/p suprapubic cath (placed 05/29), who presented to the ER 06/11 for 4 days of nausea, vomiting, diarrhea, and generalized weakness and was admitted for DKA. #DKA - On arrival, glucose >400, anion gap 20 - Both resolving, gap 9 on 06/12am - Diet once AG closes - on subQ insulin - potassium 3.2 ordered 40meq PO KCl, 20meq K-riders - mag 1.4 repleting - q6h BMP until 3pm, then qAM - repeat VBG 3pm, then 06/13 am - repeat CBC tomorrow #UTI UA showing 4+ bacteria, leuks started on CTX 2g in ED culture showed 3 types of organisms with high counts, repeat collection recommended #HTN chronic, managed by losartan, clonidine, and amlodipine at home given hydralazine while NPO home PO meds resumed #Colitis CT abd/pelvis showing colitis affecting splenic flexure Lactate not elevated -> lower concern for ischemia colitis #CKD stage III - creatinine currently 1.4, below baseline of 1.7-1.8 - avoid nephrotoxic meds - dvt prophylaxis heparin as Lovenox is contraindicated, d/c once ambulatory Dispo: pcu-tele Diet: carb conscious/diabetic diet VTE ppx: heparin 5,000U q12 until ambulatory Admission and Anticipated Discharge Date Admission Date: June 11, 2024 Supervising Physician Co-Signing Physician Notes I personally examined the patient and verified all guillen points of history and exam, discussed case, and agree with decision making with Dr Win and Talat Valencia MS4 feeling lousy/nauseated vitals noted nad heent nc at mmm fatigued somewhat nauseated appearing. no respiratory distress hyperglycemic dehydration - do not think this represents actual DKA - suspect viral GE -> dehydration --> this plus physiologic stress leading to worse dehydration working towards (but not quite) HHS type physiology (and acidosis likely from starvation + dehydration). questionable/doubtful UTI - given WBC mildly elevated no overt sx. IV fluids, nausea meds, supportive care, insulin, time DVT proph - heparin SQ otherwise as above Subjective Patient was examined at bedside. Per nursing, her blood pressures remained elevated overnight; home antihypertensives were restarted this AM. She still feels queasy (reports this has been ongoing x1 week) and requested that the head of her bed be lowered to reduce pressure on her abdomen. She had diarrhea either or Wednesday but has had no bowel movement since. She has not eaten anything in several days. She does report presenting to the ED last week for a bowel impaction, and has been nauseous ever since. Review of Systems Review of Systems: As per HPI. Physical Exam Physical Exam: Gen: A&Ox3, appears uncomfortable HEENT: EOM intact, anicteric sclerae CV: RRR Resp: CTAB GI/Abd: tenderness to palpation in midline, appearing slightly distended, suprapubic catheter present with gauze and tape, mild erythema of skin around catheter but no pus, fluid, swelling, or tenderness to palpation Neuro: no facial droop but mild facial twitching, speech intact Results & Data Results & Data Vital Signs (Past 12 Hours) Vital Signs Temp Pulse Pulse Resp BP BP Pulse Ox 06/12/24 06:40 164/77 H 06/12/24 03:44 36.9 C 82 18 188/72 H 94 06/12/24 01:04 166/76 H 06/11/24 23:06 36.6 C 85 18 186/80 H 96 06/11/24 22:15 06/11/24 22:15 36.5 C 83 18 181/90 H 96 06/11/24 21:53 91 H 06/11/24 21:05 90 06/11/24 20:44 91 H 20 199/91 H 96 06/11/24 19:00 95 H 29 H 153/86 H 97 O2 Del Method 06/12/24 06:40 06/12/24 03:44 Room Air 06/12/24 01:04 06/11/24 23:06 Room Air 06/11/24 22:15 Room Air 06/11/24 22:15 Room Air 06/11/24 21:53 06/11/24 21:05 06/11/24 20:44 Room Air 06/11/24 19:00 Room Air Resident Activity Tracking Resident Involvement: Resident Care Provided Care Provided: Adult Hospital Medicine Resident Supervision Co-Signing Physician Notes I also saw the patient and confirmed guillen portions of the history and exam. I agree with the assessment and plan as written by student-Dr. Valencia. Any changes or additions are summarized as follows: Patient says her condition feels about the same today - mild abd pain, significant nausea. Says she feels too queasy to attempt any food. Denies LOPEZ, vision changes, CP, SOB, or suprapubic pressure/pain. BP has been consistently > 160/80s; had not been taking clonidine for past 4 days, restarted this morning. Mild abd distension and epigastric tenderness on exam. No SP tenderness, heart RRR, lungs CTAB, skin well-perfused, normal ROM. DKA - known type 2 diabetic; a1c yesterday 11.1. Pharmacy consulted for insulin management. For nausea: 5mg IV compazine q6h, 40mg IV protonix daily, 10mg po pepcid bid. UTI - h/o urinary retention, SP cath placed 05/29, currently no sx, UA very suggestive of infection, Ucx grew high counts of multiple organisms. No fever or SP pain/pressure, WBC normalized. Will hold abx and monitor closely. Osman Win MD PGY-1, [facility] (1) DKA (diabetic ketoacidosis) Diabetes mellitus complication detail: without coma Diabetes mellitus type: type 2 Qualified Code(s): E11.10 - Type 2 diabetes mellitus with ketoacidosis without coma
[2024-06-12] MEDS ORDERED: DEXTROSE 50% 50 ML SYRINGE IV PRN (07:30)
[2024-06-12] MEDS ORDERED: GLUCOSE 40% GEL 15 GM TUBE PO PRN (07:30)
[2024-06-12] MEDS ORDERED: CARBOHYDRATES FOR HYPOGLYCEMIA PO PRN (07:30)
[2024-06-12] MEDS ORDERED: GLUCAGON FOR INJ 1 MG VIAL SQ PRN (07:30)
[2024-06-12] MEDS ORDERED: GLUCOSE 10 TAB/TUBE PO PRN (07:30)
[2024-06-12] MEDS: LOSARTAN POTASSIUM 50 MG TAB PO SCH (07:35)
[2024-06-12] MEDS ORDERED: cloNIDine HCL 0.1 MG TAB PO SCH (09:00)
[2024-06-12] MEDS: INSULIN ASPART PER UNIT CHARGE SC SCH (09:55)
[2024-06-12 10:07] LABS: BUN Creatinine Ratio 16.3 (10-20); Calcium 7.8 mg/dl (8.6-10.3); Creatinine Clr Calc Pharmacy 29.7 ml/min; Potassium 3.7 mmol/L (3.5-5.1)
[2024-06-12] MEDS: PROCHLORPERAZINE 5 MG in SYRINGE 4 ML IV SCH (10:17)
[2024-06-12 10:20] LABS: Hematocrit (blood only) 39.4 % (37.0-47.0); Hemoglobin 13.2 g/dl (12.0-16.0); Mean Corpuscular Hemoglobin 30.3 pg (25.0-34.0); Mean Corpuscular Hgb Conc 33.5 g/dL (32.0-36.0); Mean Corpuscular Volume 90.4 fL (80.0-100.0); Mean Platelet Volume 11.8 fL (9.4-12.4); Platelet Count 240 K/uL (130-400); RDW Coefficient of Variation 13.9 % (11.5-14.5); RDW Standard Deviation 46.5 fL (36.4-46.3); Red Blood Count 4.36 M/uL (4.20-5.40); White Blood Count 10.71 K/ul (4.8-10.8)
[2024-06-12] MEDS: LACTATED RINGER'S 1,000 ML IV SCH (10:44)
--- NOTE | 2024-06-12 12:53 | Billing Data ---
Date of Service June 12, 2024 Coding Level of Care Code 57162 SUB INP/OBS CARE MIN
--- NOTE | 2024-06-12 13:16 | Pharmacy Report ---
Pharmacy Glycemic Short Note 2 - Date of Service June 12, 2024 - Glycemic Short BSG Results (Last 24 hours): 06/11/24 06/11/24 06/11/24 14:29 16:00 16:01 Glucose 417 H* 412 H* POC Glucose 389 H* 06/11/24 06/11/24 06/11/24 17:23 18:47 18:53 Glucose 241 H POC Glucose 241 H 227 H 06/11/24 06/11/24 06/11/24 20:04 20:27 21:14 Glucose 180 H 158 H POC Glucose 178 H 06/11/24 06/11/24 06/11/24 21:22 22:22 22:39 Glucose 185 H POC Glucose 150 H 155 H 06/11/24 06/12/24 06/12/24 23:23 00:18 01:00 Glucose 186 H POC Glucose 176 H 164 H 06/12/24 06/12/24 06/12/24 02:11 03:36 07:13 Glucose POC Glucose 148 H 128 H 134 H 06/12/24 06/12/24 07:22 10:53 Glucose 149 H POC Glucose 191 H OUTPATIENT ANTIDIABETIC REGIMEN: * Glimepiride 0.5 mg PO daily * Januvia 100 mg PO daily * Mounjaro 2.5 mg SC once weekly * Lantus 10 units SC AM + 20 units SC PM HbA1c: * 11.1% (06/11/24) ASSESSMENT: * 88 yo F admitted on 06/11/24 secondary to DKA. Pharmacy has been consulted to assist with inpatient glycemic management. Patient is a Type 2 diabetic as an outpatient. Please refer to outpatient regimen and most recent HbA1c above. * Admission labs: BSG 417 mg/dL, Anion Gap 20, CO2 17, VBG pH 7.29, K 3.6. * Patient was started on an insulin drip for DKA. BSGs trended down nicely. Received ~27 units of insulin through the insulin drip. * 20 units of basal given early this AM around 0200. Anion gap closed and insulin drip was discontinued. BSG this AM was 134 mg/dL, no correctional insulin given. Lunchtime BSG was 191 mg/dL. * T2DM diet ordered but patient still not eating at this point. Therefore, hesitant to give too much basal until patient starts eating. Will add a scaled basal dose to be given at dinner should hyperglycemia be present. Will need to reassess basal dose in the morning. Continue with Novolog based on weight/stress of 2-3. Targeting a goal range of 110-140 mg/dL. PLAN FOR INPATIENT GLYCEMIC CONTROL: * Hold outpatient oral diabetes medications * Basal insulin * Lantus 20 units SC x 1 around 0200 this AM * Lantus 0-10 units SC x 1 around 1630 this PM (see eMAR for more details) * Reassess basal in the morning * Bolus insulin * NovoLog per scale ACHS or Q6hrs while NPO * Goal Range: Low 110 mg/dL - High 140 mg/dL * Correction Factor: 25 mg/dL/unit * Nutritional / Prandial insulin per carb ratio of 1 unit per 8 grams CHO consumed
[2024-06-12] MEDS: FAMOTIDINE 10 MG TABLET PO SCH (13:30)
[2024-06-12] MEDS: PANTOprazole 40 MG/10 ML SYR IV SCH (13:30)
--- NOTE | 2024-06-12 14:11 | Electrocardiogram Report ---
Test Reason : Blood Pressure : */* mmHG Vent. Rate : 96 BPM Atrial Rate : 96 BPM P-R Int : 196 ms QRS Dur : 154 ms QT Int : 418 ms P-R-T Axes : 63 147 29 degrees QTcB Int : 528 ms Sinus rhythm with Premature atrial complexes in a pattern of bigeminy Right bundle branch block Left posterior fascicular block Bifascicular block Inferior infarct , age undetermined Abnormal ECG When compared with ECG of 03-Nov-2023 14:17, Significant changes have occurred Confirmed by Martinez Yao ([id number]) on 06/12/2024 2:11:16 PM Referred By: REFERRED SELF Confirmed By: Martinez Yao
[2024-06-12 15:39] LABS: Base Excess VBG -8.6 mEq/L; HCO3 VBG 17 mmol/L; Oxygen Saturation VBG 95.7 %; PCO2 VBG 33 mmHg (38-50); PO2 VBG 86 mmHg; pH VBG 7.31 (7.36-7.41)
[2024-06-12 16:10] LABS: Calcium 7.6 mg/dl (8.6-10.3); Potassium 3.9 mmol/L (3.5-5.1)
[2024-06-12 16:16] LABS: BUN Creatinine Ratio 15.9 (10-20); Creatinine Clr Calc Pharmacy 30.4 ml/min
[2024-06-12] MEDS: LANTUS PER UNIT CHARGE SC ONE (16:56)
[2024-06-12] MEDS: CALCIUM GLUCONATE 1,000 MG/60 ML BAG IV STA (17:28)
[2024-06-12] MEDS ORDERED: cefTRIAXone SODIUM 2,000 MG/50 ML BAG IV SCH (18:00)
[2024-06-12 19:00] LABS: Adenovirus F 40/41 PCR Not Detected (NotDetected); Astrovirus PCR Not Detected (NotDetected); Campylobacter PCR Not Detected (NotDetected); Cryptosporidium PCR Not Detected (NotDetected); Cyclospora cayetanensis PCR Not Detected (NotDetected); Entamoeba histolytica PCR Not Detected (NotDetected); Enteroaggregative E.coli(EAEC) Not Detected (NotDetected); Enteropathogenic E.coli (EPEC) Not Detected (NotDetected); Enterotoxigenic E.coli (ETEC) Not Detected (NotDetected); Giardia lamblia PCR Not Detected (NotDetected); Norovirus GI/GII PCR Not Detected (NotDetected); Plesiomonas shigelloides PCR Not Detected (NotDetected); Rotavirus A PCR Not Detected (NotDetected); Salmonella PCR Not Detected (NotDetected); Sapovirus PCR Not Detected (NotDetected); Shiga-like Toxin E.coli (STEC) Not Detected (NotDetected); Shigella/Enteroinvasive E.coli Not Detected (NotDetected); Vibrio cholerae PCR Not Detected (NotDetected); Vibrio species PCR Not Detected (NotDetected); Yersinia enterocolitica PCR Not Detected (NotDetected)
[2024-06-12 23:20] LABS: BUN Creatinine Ratio 14.3 (10-20); Creatinine Clr Calc Pharmacy 32.2 ml/min; Potassium 3.3 mmol/L (3.5-5.1)
[2024-06-13] MEDS: POTASSIUM CHLORIDE CRTAB 20 MEQ TABCR PO STA (00:34)
[2024-06-13] MEDS: METOPROLOL TARTRATE 1 MG/ML VIAL IV STA ×2 (00:34→02:17)
[2024-06-13] MEDS: MELATONIN 3 MG TAB PO PRN (02:15)
--- NOTE | 2024-06-13 07:19 | Hospitalist Progress Note ---
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 #Metabolic acidosis - On arrival, glucose >400, anion gap 20 - Both resolving, gap 9 on 06/12am - Diet once AG closes - on subQ insulin - potassium 3.2 ordered 40meq PO KCl, 20meq K-riders - mag 1.4 repleting - q6h BMP until 3pm, then qAM - repeat VBG 3pm, then 06/13 am - repeat CBC tomorrow #UTI UA showing 4+ bacteria, leuks started on CTX 2g in ED culture showed 3 types of organisms with high counts, repeat collection recommended #HTN chronic, managed by losartan, clonidine, and amlodipine at home given hydralazine while NPO home PO meds resumed #Colitis CT abd/pelvis showing colitis affecting splenic flexure Lactate not elevated -> lower concern for ischemia colitis #CKD stage III - creatinine currently 1.4, below baseline of 1.7-1.8 - avoid nephrotoxic meds - dvt prophylaxis heparin as Lovenox is contraindicated, d/c once ambulatory Dispo: pcu-tele Diet: carb conscious/diabetic diet VTE ppx: heparin 5,000U q12 until ambulatory Admission and Anticipated Discharge Date Admission Date: June 11, 2024 Review of Systems Review of Systems: As per HPI. Physical Exam Physical Exam: Gen: A&Ox3, appears uncomfortable HEENT: EOM intact, anicteric sclerae CV: RRR Resp: CTAB GI/Abd: tenderness to palpation in midline, appearing slightly distended, suprapubic catheter present with gauze and tape, mild erythema of skin around catheter but no pus, fluid, swelling, or tenderness to palpation Neuro: no facial droop but mild facial twitching, speech intact Results & Data Results & Data Vital Signs (Past 12 Hours) Vital Signs Temp Pulse Pulse Resp BP BP Pulse Ox 06/13/24 07:16 36.8 C 80 20 200/99 H 94 06/13/24 03:09 36.8 C 66 18 194/78 H 95 06/13/24 03:00 70 152/75 H 06/13/24 02:17 73 194/70 H 06/13/24 00:55 72 191/74 H 06/13/24 00:34 83 195/81 H 06/12/24 23:52 190/89 H 06/12/24 22:55 36.8 C 81 16 182/92 H 95 06/12/24 21:54 74 06/12/24 19:46 36.8 C 83 18 191/81 H 95 O2 Del Method 06/13/24 07:16 Room Air 06/13/24 03:09 Room Air 06/13/24 03:00 06/13/24 02:17 06/13/24 00:55 06/13/24 00:34 06/12/24 23:52 06/12/24 22:55 Room Air 06/12/24 21:54 06/12/24 19:46 Room Air Resident Supervision Co-Signing Physician Notes Reports feeling much improved today - nausea is gone, no abd pain. Appetite still gone, discussed working on trying small portions of simple foods and increasing as tolerated until appetite/po intake normalizes. AGMA - VBG normalized, AG closed, T2DM - Stop Mounjaro at discharge (should not have been taken w/ Januvia) Consider stopping Glimepiride (1) DKA (diabetic ketoacidosis) Diabetes mellitus complication detail: without coma Diabetes mellitus type: type 2 Qualified Code(s): E11.10 - Type 2 diabetes mellitus with ketoacidosis without coma
[2024-06-13 07:23] LABS: Base Excess VBG -6.3 mEq/L; HCO3 VBG 18 mmol/L; Oxygen Saturation VBG 89.5 %; PCO2 VBG 31 mmHg (38-50); PO2 VBG 61 mmHg; pH VBG 7.37 (7.36-7.41)
[2024-06-13 07:28] LABS: Hematocrit (blood only) 36.1 % (37.0-47.0); Hemoglobin 12.1 g/dl (12.0-16.0); Mean Corpuscular Hgb Conc 33.5 g/dL (32.0-36.0); Mean Corpuscular Volume 89.6 fL (80.0-100.0); Mean Platelet Volume 11.3 fL (9.4-12.4); Platelet Count 181 K/uL (130-400); RDW Coefficient of Variation 14.5 % (11.5-14.5); RDW Standard Deviation 47.5 fL (36.4-46.3); Red Blood Count 4.03 M/uL (4.20-5.40)
[2024-06-13 07:50] LABS: BUN Creatinine Ratio 12.6 (10-20); Creatinine Clr Calc Pharmacy 32.5 ml/min; Potassium 3.5 mmol/L (3.5-5.1)
[2024-06-13] MEDS: LANTUS PER UNIT CHARGE SC SCH (09:49)
--- NOTE | 2024-06-13 10:09 | Hospitalist Progress Note ---
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 #Hyperglycemia and dehydration - Likely triggered by a viral gastrointestinal illness - On arrival, glucose >400, anion gap 20 - Resolved - on subQ insulin - potassium, magnesium, and calcium repleted - qAM BMP - repeat VBG 06/03am showed resolution of acidosis (pH 7.37) - repeat CBC showed slight decrease in all cell lines #HTN chronic, managed by losartan, clonidine, and amlodipine at home given hydralazine while NPO home PO meds resumed #Colitis CT abd/pelvis showing colitis affecting splenic flexure Lactate not elevated -> lower concern for ischemia colitis #CKD stage III - creatinine currently 1.4, below baseline of 1.7-1.8 - avoid nephrotoxic meds - dvt prophylaxis heparin as Lovenox is contraindicated, d/c once ambulatory Dispo: pcu-tele Diet: carb conscious/diabetic diet VTE ppx: heparin 5,000U q12 until ambulatory Admission and Anticipated Discharge Date Admission Date: June 11, 2024 Subjective Patient was examined at bedside. She looks improved from yesterday. She reports that her nausea and sensation of stomach pressure have lessened. She has been able to eat some bites of applesauce without emesis. Physical Exam Physical Exam: Gen: A&Ox3, appears uncomfortable HEENT: EOM intact, anicteric sclerae CV: RRR Resp: CTAB GI/Abd: tenderness to palpation in lower abdomen around suprapubic catheter, appearing slightly distended, suprapubic catheter present with gauze and tape, no erythema of skin around catheter MSK: R ankle slightly swollen : urine clear yellow Neuro: no facial droop, no facial twitching noted, speech intact Results & Data Results & Data Vital Signs (Past 12 Hours) Vital Signs Temp Pulse Pulse Resp BP BP Pulse Ox 06/13/24 03:09 36.8 C 66 18 194/78 H 95 06/13/24 03:00 70 152/75 H 06/13/24 02:17 73 194/70 H 06/13/24 00:55 72 191/74 H 06/13/24 00:34 83 195/81 H 06/12/24 23:52 190/89 H 06/12/24 22:55 36.8 C 81 16 182/92 H 95 06/12/24 21:54 74 06/12/24 19:46 36.8 C 83 18 191/81 H 95 O2 Del Method 06/13/24 03:09 Room Air 06/13/24 03:00 06/13/24 02:17 06/13/24 00:55 06/13/24 00:34 06/12/24 23:52 06/12/24 22:55 Room Air 06/12/24 21:54 06/12/24 19:46 Room Air Resident Activity Tracking Resident Involvement: Resident Care Provided Care Provided: Adult [facility] Medicine Resident Supervision Co-Signing Physician Notes I also saw the patient and confirmed guillen portions of the history and exam. I agree with the assessment and plan as written by student-Dr. Valencia. Any changes or additions are summarized as follows: Subjective: Reports feeling much improved today - nausea is gone, no abd pain. Appetite still gone, discussed working on trying small portions of simple foods and increasing as tolerated until appetite/po intake normalizes. Exam: NCAT, heart RRR, lungs CTAB, abd mildly distended nontender compared w previous exam AGMA: VBG not acidotic but pCO2 still low at 31; AG closed; clinically improving; continue compazine, protonix, pepcid & ADAT T2DM: bsg was 457 on arrival, has been decreasing throughout admission, 129 this AM; initial elevation likely 2/2 not taking meds for several days. Pharm consulted for med/insulin management. Rec stopping Mounjaro at discharge (should not have been taken w/ Januvia); consider stopping Glimepiride. UTI doubtful given no sx and normal WBC on no abx. Osman Win MD PGY-1, [facility] (1) DKA (diabetic ketoacidosis) Diabetes mellitus complication detail: without coma Diabetes mellitus type: type 2 Qualified Code(s): E11.10 - Type 2 diabetes mellitus with ketoacidosis without coma
--- NOTE | 2024-06-13 12:33 | Pharmacy Report ---
Pharmacy Glycemic Short Note 2 - Date of Service June 13, 2024 - Glycemic Short BSG Results (Last 24 hours): 06/12/24 06/12/24 06/12/24 15:22 15:53 20:08 Glucose 177 H POC Glucose 172 H 125 H 06/12/24 06/12/24 06/13/24 21:25 22:45 07:01 Glucose Cancelled 135 H 129 H POC Glucose 06/13/24 06/13/24 07:15 11:20 Glucose POC Glucose 134 H 167 H OUTPATIENT ANTIDIABETIC REGIMEN: * Glimepiride 0.5 mg PO daily * Januvia 100 mg PO daily * Mounjaro 2.5 mg SC once weekly * Lantus 10 units SC AM + 20 units SC PM HbA1c: * 11.1% (06/11/24) ASSESSMENT: 06/13: * BSGs largely within goal the last 24h: 223-401-110-167mg/dL. Received 25 units of SQ basal and 5 units of bolus insulin yesterday after drip transition. * Diet ordered although not tolerating any PO. * Lantus decreased this AM given fasting within goal and no PO intake. Plan for scaled dose at dinner pending BSG. No change to Novolog. 06/12: * 88 yo F admitted on 06/11/24 secondary to DKA. Pharmacy has been consulted to assist with inpatient glycemic management. Patient is a Type 2 diabetic as an outpatient. Please refer to outpatient regimen and most recent HbA1c above. * Admission labs: BSG 417 mg/dL, Anion Gap 20, CO2 17, VBG pH 7.29, K 3.6. * Patient was started on an insulin drip for DKA. BSGs trended down nicely. Received ~27 units of insulin through the insulin drip. * 20 units of basal given early this AM around 0200. Anion gap closed and insulin drip was discontinued. BSG this AM was 134 mg/dL, no correctional insulin given. Lunchtime BSG was 191 mg/dL. * T2DM diet ordered but patient still not eating at this point. Therefore, hesitant to give too much basal until patient starts eating. Will add a scaled basal dose to be given at dinner should hyperglycemia be present. Will need to reassess basal dose in the morning. Continue with Novolog based on weight/stress of 2-3. Targeting a goal range of 110-140 mg/dL. PLAN FOR INPATIENT GLYCEMIC CONTROL: * Hold outpatient oral diabetes medications * Basal insulin * Lantus 10 units qAM + dinner scale (5//15 units) depending on BSG * Bolus insulin * NovoLog per scale ACHS or Q6hrs while NPO * Goal Range: Low 110 mg/dL - High 140 mg/dL * Correction Factor: 25 mg/dL/unit * Nutritional / Prandial insulin per carb ratio of 1 unit per 8 grams CHO consumed
[2024-06-13] MEDS ORDERED: LANTUS PER UNIT CHARGE SC SCH (16:30)
[2024-06-13] MEDS ORDERED: METOPROLOL TARTRATE 1 MG/ML VIAL IV PRN (19:28)
[2024-06-14 06:50] LABS: Hematocrit (blood only) 38.2 % (37.0-47.0); Hemoglobin 12.6 g/dl (12.0-16.0); Mean Corpuscular Hemoglobin 29.7 pg (25.0-34.0); Mean Corpuscular Volume 90.1 fL (80.0-100.0); Mean Platelet Volume 11.7 fL (9.4-12.4); Platelet Count 179 K/uL (130-400); RDW Coefficient of Variation 14.5 % (11.5-14.5); RDW Standard Deviation 47.8 fL (36.4-46.3); Red Blood Count 4.24 M/uL (4.20-5.40)
[2024-06-14 07:08] LABS: Calcium 8.1 mg/dl (8.6-10.3); Potassium 3.2 mmol/L (3.5-5.1)
[2024-06-14 07:14] LABS: BUN Creatinine Ratio 12.4 (10-20)
--- NOTE | 2024-06-14 09:04 | Hospitalist Progress Note ---
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 #Hyperglycemia and dehydration - Likely triggered by a viral gastrointestinal illness - On arrival, glucose >400, anion gap 20 - Resolved - on subQ insulin - potassium, magnesium, and calcium repleted - qAM BMP - repeat VBG showed resolution of acidosis (pH 7.37) #Deconditioning - Melatonin scheduled for improving sleep quality - PT/OT evaluation ordered #Poor oral intake - Placed order for protein shakes - Nutrition recommendations appreciated #HTN chronic, managed by losartan, clonidine, and amlodipine at home given hydralazine while NPO home PO meds resumed #Colitis CT abd/pelvis showing colitis affecting splenic flexure Lactate not elevated -> lower concern for ischemia colitis Likely viral #CKD stage III - creatinine currently 1.4, below baseline of 1.7-1.8 - avoid nephrotoxic meds - dvt prophylaxis heparin as Lovenox is contraindicated, d/c once ambulatory Dispo: pcu-tele Diet: carb conscious/diabetic diet VTE ppx: heparin 5,000U q12 until ambulatory Admission and Anticipated Discharge Date Admission Date: June 11, 2024 Supervising Physician Co-Signing Physician Notes I personally examined the patient and verified all guillen points of history and exam, discussed case, and agree with decision making with Dr Win and Talat Valencia MS4 feeling tired. hasn't eaten much, hasn't gotten out of bed. blames fatigue - notes finally getting sleep vitals noted nad heent nc at mmm fatigued but nad heent nc at mmm breathing unlabored no respiratory distress hyperglycemic dehydration - do not think this represents actual DKA - suspect viral GE -> dehydration --> this plus physiologic stress leading to worse dehydration working towards (but not quite) HHS type physiology (and acidosis likely from starvation + dehydration). questionable/doubtful UTI - given WBC mildly elevated no overt sx. IV fluids, nausea meds, supportive care, insulin, time. d/w pt dire need to increase PO intake and activity despite not really feeling great yet so that she doesn't fall into a steep decline w deconditioning and malnutrition DVT proph - heparin SQ otherwise as above Subjective Patient seen at bedside. She is feeling similar to how she felt yesterday and remarked that she hasn't slept well for several days. She has not been able to increase PO intake and described her stomach as feeling "tender." Stressed importance of increasing oral intake. Physical Exam Physical Exam: Gen: A&Ox3, appears uncomfortable HEENT: EOM intact, anicteric sclerae CV: RRR Resp: CTAB GI/Abd: tenderness to palpation in right lower quadrant, mild discomfort in bilateral upper quadrants, appearing slightly distended, suprapubic catheter present with gauze and tape, no erythema of skin around catheter MSK: R ankle slightly swollen : urine clear yellow Neuro: no facial droop, no facial twitching noted, speech intact Results & Data Results & Data Vital Signs (Past 12 Hours) Vital Signs Temp Pulse Resp BP BP Pulse Ox O2 Del Method 06/14/24 03:12 36.5 C 88 16 161/84 H 96 Room Air 06/13/24 23:43 Room Air 06/13/24 23:04 36.8 C 90 18 181/81 H 95 Room Air Resident Activity Tracking Resident Involvement: Resident Care Provided Care Provided: Adult Hospital Medicine Resident Supervision Co-Signing Physician Notes I also saw the patient and confirmed guillen portions of the history and exam. I agree with the assessment and plan as written by student-Dr. Valencia. Any ch anges or additions are summarized as follows: Subjective: Feeling about the same as yesterday, not a lot of pain, nausea/queasiness only when trying to eat. Cannot eat more than one or two bites. Has not tried getting out of bed. Is concerned that she can't sleep more than 1hr at a time, does not feel rested Exam: NCAT, heart RRR, lungs CTAB, abd mildly distended, nontender compared w previous exam AGMA: Gap closed; clinically improving; continue compazine, protonix, & pepcid; added carafate; ADAT, ordered Boost shakes T2DM: bsg was 457 on arrival, has been decreasing throughout admission, 170 this AM; initial elevation likely 2/2 not taking meds for several days. Pharm consulted for med/insulin management. Rec stopping Mounjaro at discharge (should not have been taken w/ Januvia); consider stopping Glimepiride. Osman Win MD PGY-1, [facility] (1) DKA (diabetic ketoacidosis) Diabetes mellitus complication detail: without coma Diabetes mellitus type: type 2 Qualified Code(s): E11.10 - Type 2 diabetes mellitus with ketoacidosis without coma
[2024-06-14] MEDS: POTASSIUM CHLORIDE / WTR 10 MEQ/100 ML PLCT IV SCH (10:45)
--- NOTE | 2024-06-14 12:24 | Pharmacy Report ---
Pharmacy Glycemic Short Note 2 - Date of Service June 14, 2024 - Glycemic Short BSG Results (Last 24 hours): 06/13/24 06/13/24 06/14/24 16:23 20:16 05:58 Glucose 153 H POC Glucose 105 H 136 H 06/14/24 06/14/24 07:16 11:10 Glucose POC Glucose 141 H 170 H OUTPATIENT ANTIDIABETIC REGIMEN: * Glimepiride 0.5 mg PO daily * Januvia 100 mg PO daily * Mounjaro 2.5 mg SC once weekly * Lantus 10 units SC AM + 20 units SC PM HbA1c: * 11.1% (06/11/24) ASSESSMENT: 06/14: * BSGs within goal the last 24h: 101-634-160-170mg/dL. Received 10 units of basal and 2 units of bolus insulin yesterday. * Continues with no PO intake. Other stressors stable. * Lantus held last jodi given continued with no PO intake. Continue same Lantus dose this AM given fasting BSG within goal. May need to decrease if intake remains poor. Novolog carb ratio loosened in the event she eats. 06/13: * BSGs largely within goal the last 24h: 468-481-249-167mg/dL. Received 25 units of SQ basal and 5 units of bolus insulin yesterday after drip transition. * Diet ordered although not tolerating any PO. * Lantus decreased this AM given fasting within goal and no PO intake. Plan for scaled dose at dinner pending BSG. No change to Novolog. 06/12: * 88 yo F admitted on 06/11/24 secondary to DKA. Pharmacy has been consulted to assist with inpatient glycemic management. Patient is a Type 2 diabetic as an outpatient. Please refer to outpatient regimen and most recent HbA1c above. * Admission labs: BSG 417 mg/dL, Anion Gap 20, CO2 17, VBG pH 7.29, K 3.6. * Patient was started on an insulin drip for DKA. BSGs trended down nicely. Received ~27 units of insulin through the insulin drip. * 20 units of basal given early this AM around 0200. Anion gap closed and insulin drip was discontinued. BSG this AM was 134 mg/dL, no correctional insulin given. Lunchtime BSG was 191 mg/dL. * T2DM diet ordered but patient still not eating at this point. Therefore, hesitant to give too much basal until patient starts eating. Will add a scaled basal dose to be given at dinner should hyperglycemia be present. Will need to reassess basal dose in the morning. Continue with Novolog based on w eight/stress of 2-3. Targeting a goal range of 110-140 mg/dL. PLAN FOR INPATIENT GLYCEMIC CONTROL: * Hold outpatient oral diabetes medications * Basal insulin * Lantus 10 units qAM * Bolus insulin * NovoLog per scale ACHS or Q6hrs while NPO * Goal Range: Low 110 mg/dL - High 140 mg/dL * Correction Factor: 25 mg/dL/unit * Nutritional / Prandial insulin per carb ratio of 1 unit per 10 grams CHO consumed
--- NOTE | 2024-06-14 13:15 | Billing Data ---
Date of Service June 14, 2024 Coding Level of Care Code 95477 SUB INP/OBS CARE MIN
[2024-06-14] MEDS: SUCRALFATE 1 GM/10 ML UDC PO SCH (13:17)
[2024-06-14] MEDS: PANTOprazole 40 MG/10 ML SYR IV SCH (21:13)
[2024-06-14] MEDS: FAMOTIDINE 20 MG TAB PO SCH (21:14)
[2024-06-15] MEDS: MELATONIN 3 MG TAB PO SCH (00:51)
[2024-06-15 06:46] LABS: Hematocrit (blood only) 40.5 % (37.0-47.0); Hemoglobin 13.5 g/dl (12.0-16.0); Mean Corpuscular Hemoglobin 29.9 pg (25.0-34.0); Mean Corpuscular Hgb Conc 33.3 g/dL (32.0-36.0); Mean Corpuscular Volume 89.8 fL (80.0-100.0); Mean Platelet Volume 12.2 fL (9.4-12.4); Platelet Count 210 K/uL (130-400); RDW Coefficient of Variation 14.3 % (11.5-14.5); RDW Standard Deviation 46.8 fL (36.4-46.3); Red Blood Count 4.51 M/uL (4.20-5.40); White Blood Count 9.93 K/ul (4.8-10.8)
[2024-06-15 07:03] LABS: BUN Creatinine Ratio 12.3 (10-20); Calcium 8.5 mg/dl (8.6-10.3); Creatinine Clr Calc Pharmacy 29.3 ml/min; Potassium 3.5 mmol/L (3.5-5.1)
[2024-06-15] MEDS ORDERED: LANTUS PER UNIT CHARGE SC ONE (07:30)
--- NOTE | 2024-06-15 07:32 | Hospitalist Progress Note ---
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 #Hyperglycemia and dehydration - Likely triggered by a viral gastrointestinal illness - On arrival, glucose >400, anion gap 20 - Resolved - repeat VBG showed resolution of acidosis (pH 7.37) - on subQ insulin - potassium, magnesium, and calcium repleted - qAM CBC #Grief with poor oral intake - Melatonin scheduled for improving sleep quality - PT/OT evaluation ordered to encourage ambulation - Protein shakes provided to increase nutrient intake - Nutrition recommendations appreciated #HTN chronic, managed by losartan, clonidine, and amlodipine at home given hydralazine while NPO home PO meds resumed #Colitis CT abd/pelvis showing colitis affecting splenic flexure Lactate not elevated -> lower concern for ischemia colitis Likely viral #CKD stage III - creatinine increased from 1.13 to 1.30 - does not meet criteria for MODESTA - encouraging increased PO intake - avoid nephrotoxic meds - dvt prophylaxis heparin as Lovenox is contraindicated, d/c once ambulatory Dispo: pcu-tele Diet: carb conscious/diabetic diet VTE ppx: heparin 5,000U q12 until ambulatory Admission and Anticipated Discharge Date Admission Date: June 11, 2024 Supervising Physician Co-Signing Physician Notes I personally examined the patient and verified all guillen points of history and exam, discussed case, and agree with decision making with Dr Win and Talat Valencia MS4 starting to try to eat more. hasn't really gotten OOB yet thought. does feel a little better vitals noted nad heent nc at mmm fatigued but nad heent nc at mmm breathing unlabored no respiratory distress hyperglycemic dehydration - do not think this represents actual DKA - suspect viral GE -> dehydration --> this plus physiologic stress leading to worse dehydration working towards (but not quite) HHS type physiology (and acidosis likely from starvation + dehydration). questionable/doubtful UTI - given WBC mildly elevated no overt sx. holding IV fluids, continue nausea meds, supportive care, insulin,showing slow improvement. reiterated w pt (dtr present who agrees) dire need to increase PO intake and activity despite not really feeling great yet so that she doesn't fall into a steep decline w deconditioning and malnutrition - but at least today she is showing some progress dysphagia - outpatient w/u / management had been underway - asked speech for assistance as well DVT proph - heparin SQ otherwise as above Subjective Patient seen at bedside. Her nausea is slightly better, although she is still experiencing some abdominal discomfort. Per nursing, she ate 50% of her dinner yesterday (06/14), and this morning she stated that she was going to try to eat at least part of her breakfast. She has not yet been out of bed. Of note, nursing mentioned that patient lost her unexpectedly one month ago. He passed in his sleep. The only time patient has been observed to smile has been when discussing her late . Review of Systems Review of Systems: Per HPI Physical Exam Physical Exam: Gen: A&Ox3, appears tired HEENT: EOM intact, anicteric sclerae CV: RRR Resp: CTAB GI/Abd: mild discomfort to deep palpation Neuro: no facial droop, no facial twitching noted, speech intact Psych: flattened affect Results & Data Results & Data Vital Signs (Past 12 Hours) Vital Signs Temp Pulse Resp BP BP Pulse Ox O2 Del Method 06/15/24 03:24 36.7 C 84 18 161/74 H 96 Room Air 06/14/24 23:51 Room Air 06/14/24 22:40 36.5 C 90 18 138/86 96 Room Air Resident Activity Tracking Resident Involvement: Resident Care Provided Care Provided: Adult Hospital Medicine Resident Supervision Co-Signing Physician Notes I also saw the patient and confirmed guillen portions of the history and exam. I agree with the assessment and plan as written by student-Dr. Valencia. Any changes or additions are summarized as follows: Subjective: Feeling fine this morning, no pain, queasiness improving. Has been able to eat more of her meals (reports ~50% yesterday). Also able to sleep a little. No new complaints Exam: NCAT, heart RRR, lungs CTAB, abd NT/ND, full ROM & normal str AGMA: Clinically improving; continue compazine, protonix, pepcid, carafate; ADAT + Boost shakes; [employer] consulted T2DM: bsg was 457 on arrival, has been decreasing throughout admission, 179 this AM; initial elevation likely 2/2 not taking meds for several days. Pharm con sulted for med/insulin management. Rec stopping Mounjaro at discharge (should not have been taken w/ Januvia); consider stopping Glimepiride. Deconditioning: encourage po intake as above; PT/OT eval & treat Grief/bereavement: partner in approximately the past month, likely contributing to lack of appetite and energy; consider therapy/grief counseling rather than pharm tx Osman Win MD PGY-1, [facility] (1) DKA (diabetic ketoacidosis) Diabetes mellitus complication detail: without coma Diabetes mellitus type: type 2 Qualified Code(s): E11.10 - Type 2 diabetes mellitus with ketoacidosis without coma
[2024-06-15] MEDS: LANTUS PER UNIT CHARGE SC ONE (08:42)
[2024-06-15] MEDS: ACETAMINOPHEN 325 MG TAB PO PRN (10:14)
--- NOTE | 2024-06-15 10:25 | Pharmacy Report ---
Pharmacy Glycemic Short Note 2 - Date of Service June 15, 2024 - Glycemic Short BSG Results (Last 24 hours): 06/14/24 06/14/24 06/14/24 11:10 16:08 20:04 Glucose POC Glucose 170 H 166 H 175 H 06/15/24 06/15/24 05:49 07:24 Glucose 181 H POC Glucose 179 H OUTPATIENT ANTIDIABETIC REGIMEN: * Glimepiride 0.5 mg PO daily * Januvia 100 mg PO daily * Mounjaro 2.5 mg SC once weekly * Lantus 10 units SC AM + 20 units SC PM HbA1c: * 11.1% (06/11/24) ASSESSMENT: 06/15: * Stressors stable. PO intake remains poor - 15g documented CHO at dinner with "HS snack" noted overnight last night - unknown CHO amount. Note that the snack was not covered with insulin. * AM fasting BSG elevated, but likely 2nd overnight snack. Will leave basal as- is * Minimal sufficient data to determine if CHO ratio is appropriate since patient is not eating much. Will leave as-is for now. 06/14: * BSGs within goal the last 24h: 050-398-981-170mg/dL. Received 10 units of basal and 2 units of bolus insulin yesterday. * Continues with no PO intake. Other stressors stable. * Lantus held last jodi given continued with no PO intake. Continue same Lantus dose this AM given fasting BSG within goal. May need to decrease if intake remains poor. Novolog carb ratio loosened in the event she eats. 06/13: * BSGs largely within goal the last 24h: 898-396-477-167mg/dL. Received 25 units of SQ basal and 5 units of bolus insulin yesterday after drip transition. * Diet ordered although not tolerating any PO. * Lantus decreased this AM given fasting within goal and no PO intake. Plan for scaled dose at dinner pending BSG. No change to Novolog. 06/12: * 88 yo F admitted on 06/11/24 secondary to DKA. Pharmacy has been consulted to assist with inpatient glycemic management. Patient is a Type 2 diabetic as an outpatient. Please refer to outpatient regimen and most recent HbA1c above. * Admission labs: BSG 417 mg/dL, Anion Gap 20, CO2 17, VBG pH 7.29, K 3.6. * Patient was started on an insulin drip for DKA. BSGs trended down nicely. Received ~27 units of insulin through the insulin drip. * 20 units of basal given early this AM around 0200. Anion gap closed and insulin drip was discontinued. BSG this AM was 134 mg/dL, no correctional insulin given. Lunchtime BSG was 191 mg/dL. * T2DM diet ordered but patient still not eating at this point. Therefore, hesitant to give too much basal until patient starts eating. Will add a scaled basal dose to be given at dinner should hyperglycemia be present. Will need to reassess basal dose in the morning. Continue with Novolog based on weight/stress of 2-3. Targeting a goal range of 110-140 mg/dL. PLAN FOR INPATIENT GLYCEMIC CONTROL: * Hold outpatient oral diabetes medications * Basal insulin * Lantus 10 units qAM * Bolus insulin * NovoLog per scale ACHS or Q6hrs while NPO * Goal Range: Low 110 mg/dL - High 140 mg/dL * Correction Factor: 25 mg/dL/unit * Nutritional / Prandial insulin per carb ratio of 1 unit per 10 grams CHO consumed
--- NOTE | 2024-06-15 12:47 | Billing Data ---
Date of Service June 15, 2024 Coding Level of Care Code 27279 SUB INP/OBS CARE MIN
--- NOTE | 2024-06-15 12:48 | Billing Data ---
Date of Service June 15, 2024 Coding Level of Care Code 26436 SUB INP/OBS CARE MIN
[2024-06-16 07:17] LABS: Hematocrit (blood only) 37.7 % (37.0-47.0); Hemoglobin 12.4 g/dl (12.0-16.0); Mean Corpuscular Hemoglobin 29.6 pg (25.0-34.0); Mean Corpuscular Hgb Conc 32.9 g/dL (32.0-36.0); Mean Platelet Volume 12.4 fL (9.4-12.4); Platelet Count 163 K/uL (130-400); RDW Coefficient of Variation 14.4 % (11.5-14.5); RDW Standard Deviation 46.9 fL (36.4-46.3); Red Blood Count 4.19 M/uL (4.20-5.40)
[2024-06-16 07:30] LABS: BUN Creatinine Ratio 12.3 (10-20); Calcium 8.5 mg/dl (8.6-10.3); Creatinine Clr Calc Pharmacy 29.3 ml/min; Potassium 2.9 mmol/L (3.5-5.1)
--- NOTE | 2024-06-16 08:42 | Pharmacy Report ---
Pharmacy Glycemic Short Note 2 - Date of Service June 16, 2024 - Glycemic Short BSG Results (Last 24 hours): 06/15/24 06/15/24 06/15/24 11:25 16:55 20:16 Glucose POC Glucose 235 H 186 H 237 H 06/16/24 06/16/24 06:46 07:08 Glucose 171 H POC Glucose 184 H OUTPATIENT ANTIDIABETIC REGIMEN: * Glimepiride 0.5 mg PO daily * Januvia 100 mg PO daily * Mounjaro 2.5 mg SC once weekly * Lantus 10 units SC AM + 20 units SC PM HbA1c: * 11.1% (06/11/24) ASSESSMENT: 06/16: * Stressors stable. PO intake improved slightly yesterday, but not by much. BSG's remain elevated throughout the day. * Will slightly increase Lantus * Will slightly tighten CHO ratio 06/15: * Stressors stable. PO intake remains poor - 15g documented CHO at dinner with "HS snack" noted overnight last night - unknown CHO amount. Note that the snack was not covered with insulin. * AM fasting BSG elevated, but likely 2nd overnight snack. Will leave basal as- is * Minimal sufficient data to determine if CHO ratio is appropriate since patient is not eating much. Will leave as-is for now. 06/14: * BSGs within goal the last 24h: 780-699-691-170mg/dL. Received 10 units of basa l and 2 units of bolus insulin yesterday. * Continues with no PO intake. Other stressors stable. * Lantus held last jodi given continued with no PO intake. Continue same Lantus dose this AM given fasting BSG within goal. May need to decrease if intake remains poor. Novolog carb ratio loosened in the event she eats. 06/13: * BSGs largely within goal the last 24h: [phone]/dL. Received 25 units of SQ basal and 5 units of bolus insulin yesterday after drip transition. * Diet ordered although not tolerating any PO. * Lantus decreased this AM given fasting within goal and no PO intake. Plan for scaled dose at dinner pending BSG. No change to Novolog. 06/12: * 88 yo F admitted on 06/11/24 secondary to DKA. Pharmacy has been consulted to assist with inpatient glycemic management. Patient is a Type 2 diabetic as an outpatient. Please refer to outpatient regimen and most recent HbA1c above. * Admission labs: BSG 417 mg/dL, Anion Gap 20, CO2 17, VBG pH 7.29, K 3.6. * Patient was started on an insulin drip for DKA. BSGs trended down nicely. Received ~27 units of insulin through the insulin drip. * 20 units of basal given early this AM around 0200. Anion gap closed and insulin drip was discontinued. BSG this AM was 134 mg/dL, no correctional insulin given. Lunchtime BSG was 191 mg/dL. * T2DM diet ordered but patient still not eating at this point. Therefore, hesitant to give too much basal until patient starts eating. Will add a scaled basal dose to be given at dinner should hyperglycemia be present. Will need to reassess basal dose in the morning. Continue with Novolog based on weigh t/stress of 2-3. Targeting a goal range of 110-140 mg/dL. PLAN FOR INPATIENT GLYCEMIC CONTROL: * Hold outpatient oral diabetes medications * Basal insulin * Lantus 15 units x1 this AM. Additional 5 units tonight if BSG remains > 180 mg/dL * Bolus insulin * NovoLog per scale ACHS or Q6hrs while NPO * Goal Range: Low 110 mg/dL - High 140 mg/dL * Correction Factor: 25 mg/dL/unit * Nutritional / Prandial insulin per carb ratio of 1 unit per 9 grams CHO consumed
[2024-06-16] MEDS: LANTUS PER UNIT CHARGE SC ONE ×2 (09:45→20:54)
[2024-06-16] MEDS: POTASSIUM ACETATE/NSS 10 MEQ/105 ML BAG IV SCH (11:27)
[2024-06-16 16:09] LABS: BUN Creatinine Ratio 12.1 (10-20); Calcium 8.3 mg/dl (8.6-10.3); Creatinine Clr Calc Pharmacy 28.9 ml/min; Potassium 3.7 mmol/L (3.5-5.1)
--- NOTE | 2024-06-16 16:49 | Hospitalist Progress Note ---
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 #Hyperglycemia and dehydration - Likely triggered by a viral gastrointestinal illness - On arrival, glucose >400, anion gap 20 - Resolved - repeat VBG showed resolution of acidosis (pH 7.37) - on subQ insulin - potassium, magnesium, and calcium repleted - qAM CBC #Grief with poor oral intake - Melatonin scheduled for improving sleep quality - PT/OT evaluation ordered to encourage ambulation - PT/OT evaluation showed significant impairment - Protein shakes provided to increase nutrient intake - Nutrition recommendations appreciated #HTN chronic, managed by losartan, clonidine, and amlodipine at home given hydralazine while NPO home PO meds resumed #Colitis CT abd/pelvis showing colitis affecting splenic flexure Lactate not elevated -> lower concern for ischemia colitis Likely viral #CKD stage III - creatinine increased from 1.13 to 1.30 - does not meet criteria for MODESTA - encouraging increased PO intake - avoid nephrotoxic meds - dvt prophylaxis heparin as Lovenox is contraindicated, d/c once ambulatory Dispo: pcu-tele Diet: carb conscious/diabetic diet VTE ppx: heparin 5,000U q12 until ambulatory Admission and Anticipated Discharge Date Admission Date: June 11, 2024 Supervising Physician Co-Signing Physician Notes I personally examined the patient and verified all guillen points of history and exam, discussed case, and agree with decision making with Dr Win and Talat Valencia MS4 not really feeling up to eating more. encouraged heavily - she asked for ice chips - i got her some but also got her ice cream. she declined the ice cream - i reiterated the importance of nutrition and implored her to at least try. vitals noted nad heent nc at mmm fatigued but nad heent nc at mmm breathing unlabored no respiratory distress hyperglycemic dehydration - do not think this represents actual DKA - suspect viral GE -> dehydration --> this plus physiologic stress leading to worse dehydration working towards (but not quite) HHS type physiology (and acidosis likely from starvation + dehydration). questionable/doubtful UTI - given WBC mildly elevated no overt sx. holding IV fluids, continue nausea meds, supportive care, insulin,showing slow improvement medically. biggest concern is her dire need to increase PO intake and activity despite not really feeling great yet so that she doesn't fall into a steep decline w deconditioning and malnutrition - i do worry about anxiety/depression driving it as much as her GI tract. dysphagia - outpatient w/u / management had been underway -speech input appreciated deconditioning - PT/OT eval and treat, likely will need SNF DVT proph - heparin SQ otherwise as above Subjective Patient seen at bedside. She was lightly asleep, but awakened easily to voice. She slept "a little." She has not yet been out of bed. Her last meal was not documented. Her stomach discomfort has improved slightly. Review of Systems Review of Systems: General: patient endorses tiredness Cardio: no chest pain or pressure Resp: no shortness of breath GI: no nausea, vomiting, or diarrhea Neuro: no headaches or dizziness Physical Exam Physical Exam: Gen: A&Ox3, appears tired HEENT: EOM intact, anicteric sclerae CV: RRR Resp: CTAB GI/Abd: nontender to palpation Neuro: no facial droop, no facial twitching noted, speech intact Psych: flattened affect, sad appearing Results & Data Results & Data Vital Signs (Past 12 Hours) Vital Signs Temp Pulse Pulse Resp BP BP Pulse Ox 06/16/24 15:56 36.4 C L 91 H 16 130/74 93 06/16/24 09:40 06/16/24 07:03 36.9 C 91 H 16 166/79 H 172/93 H 95 O2 Del Method 06/16/24 15:56 Room Air 06/16/24 09:40 Room Air 06/16/24 07:03 Room Air Resident Activity Tracking Resident Involvement: Resident Care Provided Care Provided: Adult Hospital Medicine Resident Supervision Co-Signing Physician Notes I also saw the patient and confirmed guillen portions of the history and exam. I agree with the assessment and plan as written by student-Dr. Valencia. Any changes or additions are summarized as follows: Feels about the same as yesterday, denies any pain or n/v, no new complaints. Was able to sleep a bit overnight. Has not tried getting out of bed. Was not able to eat a substantial portion of any meal yesterday - reports no physical discomfort, just no appetite. Exam: NCAT, heart RRR, lungs CTAB, abd NT/ND, full ROM AGMA: Abd pain and n/v resolved; continue compazine, protonix, pepcid, carafate; [employer] consulted; ADAT + Boost shakes but pt has minimal appetite and does not attempt meals Deconditioning: encourage po intake as above; PT/OT consulted, pt scored 8 on 6- clicks and does not independently attempt to get out of bed T2DM: bsg was 457 on arrival, has been decreasing throughout admission, 179 this AM; initial elevation likely 2/2 not taking meds for several days. Pharm consulted for med/insulin management. Rec stopping Mounjaro at discharge (should not have been taken w/ Januvia); consider stopping Glimepiride. Grief/bereavement: partner in approximately the past month, likely contributing to lack of appetite and energy; consider therapy/grief counseling rather than pharm tx Osman Win MD PGY-1, [facility] (1) DKA (diabetic ketoacidosis) Diabetes mellitus complication detail: without coma Diabetes mellitus type: type 2 Qualified Code(s): E11.10 - Type 2 diabetes mellitus with ketoacidosis without coma
--- NOTE | 2024-06-16 17:34 | Billing Data ---
Date of Service June 16, 2024 Coding Level of Care Code 54985 SUB INP/OBS CARE
--- NOTE | 2024-06-17 06:52 | Hospitalist Progress Note ---
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 Hyperglycemia / dehydration / AGMA - Likely triggered by a viral gastrointestinal illness - On arrival, glucose >400, anion gap 20 - Resolved - repeat VBG showed resolution of acidosis (pH 7.37) - potassium, magnesium, and calcium repleted - Pharm consulted for med/insulin management; Rec stopping Mounjaro at discharge & possibly stopping Glimepiride Deconditioning / poor oral intake - PT/OT consulted; initial eval showed significant impairment Pt scored 8 on 6-clicks Recommend SNF after discharge; pt from [facility] who won't take her back if not at baseline - Protein shakes provided to increase nutrient intake - Nutrition recommendations appreciated #Grief/bereavement - Partner in approximately the past month; likely contributing to lack of appetite and energy - Consider outpatient therapy/grief counseling rather than pharm tx - Seen by psych liaison who determined pt has [employer] support system to fall back on, and planned move to [place], [place] #HTN chronic, managed by losartan, clonidine, and amlodipine at home given hydralazine while NPO home PO meds resumed #Colitis CT abd/pelvis showing colitis affecting splenic flexure Lactate not elevated -> lower concern for ischemia colitis Likely viral #CKD stage III - creatinine increased from 1.13 to 1.30 - does not meet criteria for MODESTA - encouraging increased PO intake - avoid nephrotoxic meds - dvt prophylaxis heparin as Lovenox is contraindicated, d/c once ambulatory Dispo: pcu-tele Diet: carb conscious/diabetic diet VTE ppx: heparin 5,000U q12 until ambulatory Admission and Anticipated Discharge Date Admission Date: June 11, 2024 Supervising Physician Co-Signing Physician Notes I personally examined the patient and verified all guillen points of history and exam, discussed case, and agree with decision making with Dr Win dtr encouraging her to eat more. maybe doing a little better. still not realy getting up much vitals noted nad heent nc at mmm fatigued but nad heent nc at mmm breathing unlabored no respiratory distress hyperglycemic dehydration - do not think this represents actual DKA - suspect viral GE -> dehydration --> this plus physiologic stress leading to worse dehydration working towards (but not quite) HHS type physiology (and acidosis likely from starvation + dehydration). questionable/doubtful UTI - given WBC mildly elevated no overt sx. holding IV fluids, continue nausea meds, supportive care, insulin management, showing overall improvement medically. my biggest concern is her dire need to increase PO intake and activity despite not really feeling great yet so that she doesn't fall into a steep decline w deconditioning and malnutrition - i do worry about anxiety/depression driving it as much as her GI tract. stock taker following as well dysphagia - outpatient w/u / management had been underway -speech input appreciated deconditioning - PT/OT eval and treat, will need SNF. encouraged activity. dtr noted that she wondered if PT input was skewed by antiemetics she'd had right before -we discussed possibly, but unlikely to the degree that it would mean she can return to [facility] based on how weak she appears here DVT proph - heparin SQ otherwise as above Subjective Feeling well this morning. Was able to sleep overnight for the first time in > 1 week. No abd pain or n/v, no new complaints. Daughter is at bedside, will encourage pt to eat snacks throughout the day and to get out of bed for a short time Review of Systems 2 Review of Systems: As per HPI. Physical Exam 2 Physical Exam: Gen: NAD, appears livelier than prev exams HEENT: NCAT, PERRL, MMM CV: RRR, no m/r/g, S1/S2 normal Resp: CTAB, symmetrical chest rise, breathing non-labored Abd: Soft, NT/ND, +BS MSK: Full ROM, no gross deformities Skin: Warm, dry, pink, no rashes or lesions Results & Data Results & Data Vital Signs (Past 12 Hours) Vital Signs Temp Pulse Resp BP Pulse Ox O2 Del Method 06/16/24 19:41 36.5 C 92 H 18 145/68 H 97 Room Air Laboratory Results 06/17/24 06:59 06/17/24 06:59 Resident Activity Tracking Resident Involvement: Resident Care Provided Care Provided: Adult Hospital Medicine (1) DKA (diabetic ketoacidosis) Diabetes mellitus complication detail: without coma Diabetes mellitus type: t ype 2 Qualified Code(s): E11.10 - Type 2 diabetes mellitus with ketoacidosis without coma
[2024-06-17 07:41] LABS: Hematocrit (blood only) 37.1 % (37.0-47.0); Hemoglobin 12.3 g/dl (12.0-16.0); Mean Corpuscular Hemoglobin 30.2 pg (25.0-34.0); Mean Corpuscular Hgb Conc 33.2 g/dL (32.0-36.0); Mean Corpuscular Volume 91.2 fL (80.0-100.0); Mean Platelet Volume 12.9 fL (9.4-12.4); Platelet Count 193 K/uL (130-400); RDW Coefficient of Variation 14.5 % (11.5-14.5); RDW Standard Deviation 48.6 fL (36.4-46.3); Red Blood Count 4.07 M/uL (4.20-5.40); White Blood Count 8.44 K/ul (4.8-10.8)
[2024-06-17 07:52] LABS: BUN Creatinine Ratio 11.5 (10-20); Calcium 8.7 mg/dl (8.6-10.3); Creatinine Clr Calc Pharmacy 29.1 ml/min; Potassium 3.5 mmol/L (3.5-5.1)
[2024-06-17] MEDS: LANTUS PER UNIT CHARGE SC SCH (09:42)
[2024-06-17] MEDS ORDERED: PROCHLORPERAZINE 5 MG in SYRINGE 4 ML IV PRN (11:52)
--- NOTE | 2024-06-17 15:32 | Billing Data ---
Date of Service June 17, 2024 Coding Level of Care Code 28498 SUB INP/OBS CARE MIN
[2024-06-18 06:38] LABS: Hematocrit (blood only) 33.3 % (37.0-47.0); Mean Corpuscular Hemoglobin 30.1 pg (25.0-34.0); Mean Platelet Volume 12.7 fL (9.4-12.4); Platelet Count 174 K/uL (130-400); RDW Coefficient of Variation 14.2 % (11.5-14.5); RDW Standard Deviation 48.1 fL (36.4-46.3); Red Blood Count 3.66 M/uL (4.20-5.40); White Blood Count 6.55 K/ul (4.8-10.8)
[2024-06-18 07:01] LABS: Calcium 8.2 mg/dl (8.6-10.3); Potassium 3.1 mmol/L (3.5-5.1)
[2024-06-18] MEDS: POTASSIUM CHLORIDE CRTAB 20 MEQ TABCR PO STA (10:39)
[2024-06-18 10:47] LABS: Magnesium 1.4 mg/dl (1.7-2.4)
--- NOTE | 2024-06-18 16:35 | Hospitalist Progress Note ---
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 #DMII with Hyperglycemia/dehydration/AGMA- Likely triggered by a viral gastrointestinal illness the week prior to admission-had severe constipation followed by disimpaction, then severe nausea but no vomiting. She stopped taking her medications/insulin. On arrival, glucose >400, anion gap 20, VBG pH 7.29. Was treated with IVFs, insulin, now resolved HgbA1C uncontrolled at 11.1%. She never started Mounjaro as outpt -hold home glimiperide and jardiance -Pharmacy managing insulin-Lantus and Novolog #Deconditioning/poor oral intake/Hypomagnesemia/Hypokalemia- PT/OT consulted; initial eval showed significant impairment-Pt scored 8 on 6-clicks. Recommend SNF after discharge; pt from [facility] who won't take her back if not at baseline. - Protein shakes provided to increase nutrient intake - Nutrition recommendations appreciated -replace with po KCl, IV magnesium -follow BMP, Mag level in AM #Acute encephalopathy- confused on 06/19 in the afternoon-this is new. No fevers. Had 2 loose stools, some mild abd cramping, vitals normal, blood glucose ok. Does have a h/o cirrhosis-could be hepatic encephalopathy/ -check NH3 level in AM -with SP cath, consider exchanging catheter and obtaining fresh UA for culture if indicated if confusion doesn't improve #Non-alcoholic cirrhosis/esophageal varices- grade 1 varices on EGD 2021, due for repeat EGD this year. No GI outpatient visits, may be followed by PCP? -check NH3 level if confusion remains #Grief/bereavement- her , Christiano, in approximately the past month; likely contributing to lack of appetite and energy - Consider outpatient therapy/grief counseling -pt declines at this time - Seen by psych liaison who determined pt has adequate support system to fall back on #HTN-BPs stable to mildly elevated -continue losartan, clonidine, and amlodipine -dc IV lopressor as cannot be given on med/surg unit #Colitis-CT abd/pelvis showing colitis affecting splenic flexure. Likely was stercoral colitis vs ischemic as per Radiology. Now with some mild abd cramping and loose stools x 2. Lactate normal on admission. Stool PCR and C. diff, and respiratory BioFire all negative. No fevers. -no treatment needed -monitor for worsening GI symptoms #CKD stage III- creatinine at baseline 1.30, follows with Nephrology at [place] - avoid nephrotoxic meds and renally dose meds as needed -continue home losartan #urge incontinence-recently s/p suprapubic catheter on 05/29 after failed stimulator and Botox treatments. UA on arrival seems abnormal but was taken from an old catheter and not reliable. Ur cx mixed sumanth -due for catheter exchange around mid June-perform sooner and collect UA sample if current confusino does not improve Dispo: continued stay on med/surg, needs repeat PT/OT evals to see if can return to H vs SNF VTE ppx: heparin 5,000U q12 Admission and Anticipated Discharge Date Admission Date: June 11, 2024 Subjective Pt reports feeling some abdominal cramps and had 2 loose stools today each time after eating. No nausea. Feels very weak and has not been out of bed in days. Typically can get out of bed to stand and get into her wheelchair prior to getting ill. Daughter at bedside reports pt was doing fairly well today but now seems confused. The patient tells me she is in [place] and has to be reminded she is in [employer] in the hospital. Daughter reports the confusion is new. Physical Exam Constitutional: WD/WN, vitals as above Respiratory: normal respiratory effort, lungs clear to auscultation Cardiovascular: RRR, no murmur, no edema Gastrointestinal (Abdomen): Inspection/Auscultation: + abdomen abnormal to inspection (SP cath in place) Percussion/Palpation: abdomen soft; abdomen nontender Psychiatric: Orientation: alert, oriented to person, oriented to time and cooperative; + not oriented to place ("[place]" in "[place]") Results & Data Results & Data Vital Signs (Past 12 Hours) Vital Signs Temp Pulse Pulse Resp BP BP Pulse Ox 06/18/24 14:47 36.6 C 80 16 140/78 94 06/18/24 13:21 36.5 C 82 18 138/76 98 06/18/24 09:30 146/80 H 06/18/24 07:56 36.6 C 79 18 166/78 H 98 06/18/24 07:18 36.7 C 73 16 155/81 H 96 O2 Del Method 06/18/24 14:47 Room Air 06/18/24 13:21 Room Air 06/18/24 09:30 06/18/24 07:56 Room Air 06/18/24 07:18 Room Air Laboratory Results CBC, BMP, magnesium reviewed PG Care Time/CCT Total # of Minutes Spent Total Time Spent with Patient: Total time spent is greater than 50% in coordination of care (as documented) at patient's floor/unit and/or counseling patient: Coding Level of Care Code 56570 SUB INP/OBS CARE 3/50MIN Diagnoses Diabetic ketoacidosis without coma associated with type 2 diabetes mellitus E11.10 Diabetes mellitus complication detail: without coma Diabetes mellitus type: type 2 Abdominal pain, LLQ (left lower quadrant) R10.32 Hypertensive urgency I16.0 Colitis K52.9 Chronic kidney disease, stage 3 N18.3 (1) DKA (diabetic ketoacidosis) Diabetes mellitus complication detail: without coma Diabetes mellitus type: type 2 Qualified Code(s): E11.10 - Type 2 diabetes mellitus with ketoacidosis without coma
[2024-06-18] MEDS: MAGNESIUM SULFATE / D5W 1 GM/100 ML BAG IV SCH (16:42)
[2024-06-18] MEDS: PANTOprazole 40 MG TAB PO SCH (20:23)
[2024-06-19 07:38] LABS: Calcium 8.4 mg/dl (8.6-10.3); Potassium 3.4 mmol/L (3.5-5.1)
[2024-06-19 07:43] LABS: BUN Creatinine Ratio 11.1 (10-20); Creatinine Clr Calc Pharmacy 28.2 ml/min
[2024-06-19 07:46] LABS: Hematocrit (blood only) 34.6 % (37.0-47.0); Hemoglobin 11.6 g/dl (12.0-16.0); Mean Corpuscular Hemoglobin 30.6 pg (25.0-34.0); Mean Corpuscular Hgb Conc 33.5 g/dL (32.0-36.0); Mean Corpuscular Volume 91.3 fL (80.0-100.0); Mean Platelet Volume 12.6 fL (9.4-12.4); Platelet Count 188 K/uL (130-400); RDW Coefficient of Variation 14.2 % (11.5-14.5); RDW Standard Deviation 47.8 fL (36.4-46.3); Red Blood Count 3.79 M/uL (4.20-5.40); White Blood Count 5.45 K/ul (4.8-10.8)
--- NOTE | 2024-06-19 09:24 | Pharmacy Report ---
Pharmacy Glycemic Short Note 2 - Date of Service June 19, 2024 - Glycemic Short BSG Results (Last 24 hours): 06/18/24 06/18/24 06/18/24 11:50 16:20 20:16 Glucose POC Glucose 206 H 117 H 248 H 06/19/24 06/19/24 06:48 07:46 Glucose 121 H POC Glucose 128 H OUTPATIENT ANTIDIABETIC REGIMEN: * Glimepiride 0.5 mg PO daily * Januvia 100 mg PO daily * Mounjaro 2.5 mg SC once weekly * Lantus 10 units SC AM + 20 units SC PM HbA1c: * 11.1% (06/11/24) ASSESSMENT: 06/19: * Bryce received a total of 41 units of insulin yesterday (20 units were basal and 21 units were bolus). BSGs were [phone]/dL. * Fasting BSG was in goal range this morning so the Lantus dose will remain the same. * 06/16: * Stressors stable. PO intake improved slightly yesterday, but not by much. BSG's remain elevated throughout the day. * Will slightly increase Lantus * Will slightly tighten CHO ratio 06/15: * Stressors stable. PO intake remains poor - 15g documented CHO at dinner with "HS snack" noted overnight last night - unknown CHO amount. Note that the snack was not covered with insulin. * AM fasting BSG elevated, but likely 2nd overnight snack. Will leave basal as- is * Minimal sufficient data to determine if CHO ratio is appropriate since patient is not eating much. Will leave as-is for now. 06/14: * BSGs within goal the last 24h: 525-558-874-170mg/dL. Received 10 units of basal and 2 units of bolus insulin yesterday. * Continues with no PO intake. Other stressors stable. * Lantus held last jodi given continued with no PO intake. Continue same Lantus dose this AM given fasting BSG within goal. May need to decrease if intake remains poor. Novolog carb ratio loosened in the event she eats. 06/13: * BSGs largely within goal the last 24h: [phone]/dL. Received 25 units of SQ basal and 5 units of bolus insulin yesterday after drip transition. * Diet ordered although not tolerating any PO. * Lantus decreased this AM given fasting within goal and no PO intake. Plan for scaled dose at dinner pending BSG. No change to Novolog. 06/12: * 88 yo F admitted on 06/11/24 secondary to DKA. Pharmacy has been consulted to assist with inpatient glycemic management. Patient is a Type 2 diabetic as an outpatient. Please refer to outpatient regimen and most recent HbA1c above. * Admission labs: BSG 417 mg/dL, Anion Gap 20, CO2 17, VBG pH 7.29, K 3.6. * Patient was started on an insulin drip for DKA. BSGs trended down nicely. Received ~27 units of insulin through the insulin drip. * 20 units of basal given early this AM around 0200. Anion gap closed and insulin drip was discontinued. BSG this AM was 134 mg/dL, no correctional insulin given. Lunchtime BSG was 191 mg/dL. * T2DM diet ordered but patient still not eating at this point. Therefore, hesitant to give too much basal until patient starts eating. Will add a scaled basal dose to be given at dinner should hyperglycemia be present. Will need to reassess basal dose in the morning. Continue with Novolog based on weight/stress of 2-3. Targeting a goal range of 110-140 mg/dL. PLAN FOR INPATIENT GLYCEMIC CONTROL: * Hold outpatient diabetes medications * Basal insulin * Lantus 20 units SQ QAM * Bolus insulin * NovoLog per scale ACHS or Q6hrs while NPO * Goal Range: Low 110 mg/dL - High 140 mg/dL * Correction Factor: 25 mg/dL/unit * Nutritional / Prandial insulin per carb ratio of 1 unit per 7 grams CHO consumed
[2024-06-19] MEDS: POLYETHYLENE (MIRALAX) 17 GM PACK PO SCH (10:41)
[2024-06-19] MEDS: DOCUSATE SODIUM 100 MG CAP PO SCH (10:41)
[2024-06-19] MEDS: POTASSIUM CHLORIDE CRTAB 20 MEQ TABCR PO SCH (10:41)
--- NOTE | 2024-06-19 14:14 | Hospitalist Progress Note ---
Date of Service June 19, 2024 Assessment & Plan (1) DKA (diabetic ketoacidosis): Plan: Present on admission. Mild. Now resolved. Continue ADA diet and basal insulin therapy. Sliding scale coverage as needed (2) Abdominal pain, LLQ (left lower quadrant): Plan: Now resolved. Possibly due to constipation. Colace and MiraLAX have been ordered (3) Hypertensive urgency: Plan: Present on admission. Now resolved. Continue current medical management (4) Colitis: Plan: Possible stercoral colitis from constipation. She is now on Colace and MiraLAX (5) Chronic kidney disease, stage 3: Plan: Stable. Monitor intake and output. Serial labs (6) Hypokalemia: Plan: Scheduled oral potassium replacement. Serial labs Plan SNF placement recommended by OT and PT. Case management aware. The patient is medically stable for discharge Admission and Anticipated Discharge Date Admission Date: June 11, 2024 Subjective Alert and oriented. Both OT and PT recommend SNF placement. Case management is aware. Oral potassium replacement ordered. Stool softener laxative also ordered. Ammonia level is normal at 19. Hemoglobin A1c is elevated but glucose was only 121 this morning. Will follow. Review of Systems 2 Review of Systems: Constitutionalno fever or chills ENTno blurred vision, no double vision, no epistaxis, no sore throat Respiratoryno cough, no wheezing, no shortness of breath Cardiacno palpitations, no chest pain, no syncope Lucio nausea, vomiting, diarrhea, melena, hematochezia GUsuprapubic bladder catheter is functioning without incident. No hematuria Musculoskeletalno joint pain, no muscle tenderness Skinno bruising, no rashes, no pruritus Neurono isolated weakness, no paresthesia, no weakness Psychno depression, no anxiety Physical Exam 2 Physical Exam: General-alert and oriented x3, no fever, no chills HEENT-head atraumatic and normocephalic, pupils equal and reactive to light, extraocular muscles intact Neck-no lymphadenopathy or thyromegaly, trachea midline Chest-clear to auscultation. No rales, wheezing or rhonchi Cardiac-regular rate and rhythm, normal S1 and S2 Abdomen-normal bowel sounds, no hepatosplenomegaly GUrecently placed suprapubic catheter is working without incident. No hematuria Extremities-no cyanosis, clubbing, or edema Neuro-cranial nerves II through XII intact, motor and sensory function within normal limits, strength symmetrical with generalized weakness, no focal deficits Psych-normal affect, normal mood Results & Data Results & Data Vital Signs (Past 12 Hours) Vital Signs Temp Pulse Resp BP BP Pulse Ox O2 Del Method 06/19/24 11:56 36.4 C L 75 15 130/82 97 Room Air 06/19/24 07:44 Room Air 06/19/24 07:25 36.4 C L 76 15 130/78 97 Room Air Laboratory Results 06/19/24 07:20 06/19/24 06:48 PG Care Time/CCT Total # of Minutes Spent Total Time Spent with Patient: Total time spent is greater than 50% in coordination of care (as documented) at patient's floor/unit and/or counseling patient: Coding Level of Care Code 31898 SUB INP/OBS CARE 3/50MIN Diagnoses Diabetic ketoacidosis without coma associated with type 2 diabetes mellitus E11.10 Diabetes mellitus complication detail: without coma Diabetes mellitus type: type 2 Abdominal pain, LLQ (left lower quadrant) R10.32 Hypertensive urgency I16.0 Colitis K52.9 Chronic kidney disease, stage 3 N18.3 Hypokalemia E87.6 (1) DKA (diabetic ketoacidosis) Diabetes mellitus complication detail: without coma Diabetes mellitus type: t ype 2 Qualified Code(s): E11.10 - Type 2 diabetes mellitus with ketoacidosis without coma
[2024-06-20 07:19] LABS: Hematocrit (blood only) 33.6 % (37.0-47.0); Mean Corpuscular Hemoglobin 29.6 pg (25.0-34.0); Mean Corpuscular Hgb Conc 32.7 g/dL (32.0-36.0); Mean Corpuscular Volume 90.3 fL (80.0-100.0); Mean Platelet Volume 12.2 fL (9.4-12.4); Platelet Count 184 K/uL (130-400); RDW Coefficient of Variation 14.1 % (11.5-14.5); RDW Standard Deviation 46.7 fL (36.4-46.3); Red Blood Count 3.72 M/uL (4.20-5.40); White Blood Count 5.25 K/ul (4.8-10.8)
[2024-06-20 07:42] LABS: BUN Creatinine Ratio 10.4 (10-20); Calcium 8.3 mg/dl (8.6-10.3); Creatinine Clr Calc Pharmacy 28.2 ml/min; Potassium 3.3 mmol/L (3.5-5.1)
[2024-06-20] MEDS ORDERED: POLYETHYLENE (MIRALAX) 17 GM PACK PO PRN (10:36)
--- NOTE | 2024-06-20 11:46 | Hospitalist Progress Note ---
Date of Service June 20, 2024 Assessment & Plan (1) DKA (diabetic ketoacidosis): Plan: Present on admission. Mild. Now resolved. Continue ADA diet and basal insulin therapy. Sliding scale coverage as needed (2) Abdominal pain, LLQ (left lower quadrant): Plan: Now resolved. Continue Colace. The family has requested that the MiraLAX be switched from scheduled dosing to as needed dosing. (3) Hypertensive urgency: Plan: Present on admission. Now resolved. Continue current medical management (4) Colitis: Plan: Possible stercoral colitis from constipation. She is now on Colace and prn MiraLAX (5) Chronic kidney disease, stage 3: Plan: Stable. Monitor intake and output. Serial labs (6) Hypokalemia: Plan: Scheduled oral potassium replacement was uptitrated to twice daily dosing today, June 20. Serial labs Plan SNF placement recommended by OT and PT. The patient is medically stable for discharge. [facility] can offer the patient a bed and we are awaiting insurance authorization Admission and Anticipated Discharge Date Admission Date: June 11, 2024 Subjective Alert and oriented. No new problems. Daughter is at the bedside. [facility] is able to take the patient at discharge and case management is pursuing insurance authorization. Potassium up titrated to twice daily dosing for mildly low potassium today. Glucose is 117 this morning with a controlled diet and basal insulin Review of Systems 2 Review of Systems: Constitutionalno fever or chills ENTno blurred vision, no double vision, no epistaxis, no sore throat Respiratoryno cough, no wheezing, no shortness of breath Cardiacno palpitations, no chest pain, no syncope Lucio nausea, vomiting, diarrhea, melena, hematochezia GUsuprapubic bladder catheter is functioning without incident. No hematuria Musculoskeletalno joint pain, no muscle tenderness Skinno bruising, no rashes, no pruritus Neurono isolated weakness, no paresthesia, no weakness Psychno depression, no anxiety Physical Exam 2 Physical Exam: General-alert and oriented x3, no fever, no chills HEENT-head atraumatic and normocephalic, pupils equal and reactive to light, extraocular muscles intact Neck-no lymphadenopathy or thyromegaly, trachea midline Chest-clear to auscultation. No rales, wheezing or rhonchi Cardiac-regular rate and rhythm, normal S1 and S2 Abdomen-normal bowel sounds, no hepatosplenomegaly GUrecently placed suprapubic catheter is working without incident. No hematuria Extremities-no cyanosis, clubbing, or edema Neuro-cranial nerves II through XII intact, motor and sensory function within normal limits, strength symmetrical with generalized weakness, no focal deficits Psych-normal affect, normal mood Results & Data Results & Data Vital Signs (Past 12 Hours) Vital Signs Temp Pulse Resp BP Pulse Ox O2 Del Method 06/20/24 07:58 36.6 C 74 17 176/77 H 97 Room Air Laboratory Results 06/20/24 06:46 06/20/24 06:46 PG Care Time/CCT Total # of Minutes Spent Total Time Spent with Patient: Total time spent is greater than 50% in coordination of care (as documented) at patient's floor/unit and/or counseling patient: Coding Level of Care Code 86268 SUB INP/OBS CARE 3/50MIN Diagnoses Diabetic ketoacidosis without coma associated with type 2 diabetes mellitus E11.10 Diabetes mellitus type: type 2 Diabetes mellitus complication detail: without coma Abdominal pain, LLQ (left lower quadrant) R10.32 Hypertensive urgency I16.0 Colitis K52.9 Chronic kidney disease, stage 3 N18.3 Hypokalemia E87.6 (1) DKA (diabetic ketoacidosis) Diabetes mellitus type: type 2 Diabetes mellitus complication detail: without coma Qualified Code(s): E11.10 - Type 2 diabetes mellitus with ketoacidosis without coma
[2024-06-20] MEDS: POTASSIUM CHLORIDE CRTAB 20 MEQ TABCR PO SCH (20:50)
[2024-06-21 08:07] LABS: BUN Creatinine Ratio 10.5 (10-20); Calcium 8.7 mg/dl (8.6-10.3); Creatinine Clr Calc Pharmacy 28.4 ml/min; Potassium 3.9 mmol/L (3.5-5.1)
[2024-06-21 12:05] VITALS: RESP 22; TEMP 97.3; O2SAT 96
--- NOTE | 2024-06-21 13:23 | Hospitalist Progress Note ---
Date of Service June 21, 2024 Assessment & Plan (1) DKA (diabetic ketoacidosis): Plan: Present on admission. Mild. Now resolved. Continue ADA diet and basal insulin therapy. Sliding scale coverage as needed (2) Abdominal pain, LLQ (left lower quadrant): Plan: Now resolved. Continue Colace. MiraLAX as needed (3) Hypertensive urgency: Plan: Present on admission. Now resolved. Continue current medical management (4) Colitis: Plan: Possible stercoral colitis from constipation. She is now on Colace and prn MiraLAX (5) Chronic kidney disease, stage 3: Plan: Stable. Monitor intake and output. Serial labs (6) Hypokalemia: Plan: Resolved. Continue scheduled oral potassium replacement twice daily. Serial labs Plan SNF placement recommended by OT and PT. The patient is medically stable for discharge. [facility] can offer the patient a bed and we are awaiting insurance authorization Admission and Anticipated Discharge Date Admission Date: June 11, 2024 Subjective Alert and oriented. No new problems. Awaiting insurance authorization for SNF placement Review of Systems 2 Review of Systems: Constitutionalno fever or chills ENTno blurred vision, no double vision, no epistaxis, no sore throat Respiratoryno cough, no wheezing, no shortness of breath Cardiacno palpitations, no chest pain, no syncope Lucio nausea, vomiting, diarrhea, melena, hematochezia GUsuprapubic bladder catheter is functioning without incident. No hematuria Musculoskeletalno joint pain, no muscle tenderness Skinno bruising, no rashes, no pruritus Neurono isolated weakness, no paresthesia, no weakness Psychno depression, no anxiety Physical Exam 2 Physical Exam: General-alert and oriented x3, no fever, no chills HEENT-head atraumatic and normocephalic, pupils equal and reactive to light, extraocular muscles intact Neck-no lymphadenopathy or thyromegaly, trachea midline Chest-clear to auscultation. No rales, wheezing or rhonchi Cardiac-regular rate and rhythm, normal S1 and S2 Abdomen-normal bowel sounds, no hepatosplenomegaly GUrecently placed suprapubic catheter is working without incident. No hematuria Extremities-no cyanosis, clubbing, or edema Neuro-cranial nerves II through XII intact, motor and sensory function within normal limits, strength symmetrical with generalized weakness, no focal deficits Psych-normal affect, normal mood Results & Data Results & Data Vital Signs (Past 12 Hours) Vital Signs Temp Pulse Pulse Resp BP Pulse Ox O2 Del Method 06/21/24 12:02 36.3 C L 80 22 177/87 H 96 Room Air 06/21/24 10:05 36.6 C 84 18 167/80 H 97 Room Air 06/21/24 07:43 36.3 C L 76 24 182/89 H 98 Room Air 06/21/24 07:40 Room Air Laboratory Results 06/20/24 06:46 06/21/24 07:17 PG Care Time/CCT Total # of Minutes Spent Total Time Spent with Patient: Total time spent is greater than 50% in coordination of care (as documented) at patient's floor/unit and/or counseling patient: Coding Level of Care Code 87576 SUB INP/OBS CARE 2/35MIN Diagnoses Diabetic ketoacidosis without coma associated with type 2 diabetes mellitus E11.10 Diabetes mellitus type: type 2 Diabetes mellitus complication detail: without coma Abdominal pain, LLQ (left lower quadrant) R10.32 Hypertensive urgency I16.0 Colitis K52.9 Chronic kidney disease, stage 3 N18.3 Hypokalemia E87.6 (1) DKA (diabetic ketoacidosis) Diabetes mellitus type: type 2 Diabetes mellitus complication detail: without coma Qualified Code(s): E11.10 - Type 2 diabetes mellitus with ketoacidosis without coma
--- NOTE | 2024-06-21 13:33 | Discharge Summary ---
Discharge Summary Date of Service June 21, 2024 Principal Dx & Hospital Course #1 = Principal Diagnosis (1) DKA (diabetic ketoacidosis): Present on admission. Now resolved. Continue ADA diet and basal insulin therapy. Sliding scale coverage as needed (2) Abdominal pain, LLQ (left lower quadrant): Now resolved. Continue Colace. MiraLAX as needed (3) Hypertensive urgency: Present on admission. Now resolved. Continue current medical management (4) Colitis: Possible stercoral colitis from constipation. She is now on Colace and prn MiraLAX (5) Chronic kidney disease, stage 3: Stable. Monitor intake and output. Serial labs (6) Hypokalemia: Resolved. Continue scheduled oral potassium replacement twice daily. 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 States after her suprapubic cath procedure on 05/29/24 she had significant constipation, which she went to the ER for on Friday 06/02 and got an enema which helped clear her out. She felt fine over the next several days but then on Wednesday 06/07 she starting having nausea, vomiting, profuse diarrhea, and weakness rendering her bedridden since then. She was unable to take any of her home medications since 06/07 despite living in an assisted living facility ( [facility]). She assumed she had a viral illness and that it would just pass naturally, but it hasn't. When her good friend checked in on her today she felt pt was pale and ill-appearing, and thus took her to the ER. Reportedly the assisted living staff was checking in on her and only giving her water, none of her medications or other food/fluids. At time of interview pt denies significant abdominal pain but appearing short of breath. ER course: given 2.5L saline bolus, 30mEq KCl, insulin reg 250U in saline, ceftriaxone 2g. Discharge Exam General-alert and oriented x3, no fever, no chills HEENT-head atraumatic and normocephalic, pupils equal and reactive to light, extraocular muscles intact Neck-no lymphadenopathy or thyromegaly, trachea midline Chest-clear to auscultation. No rales, wheezing or rhonchi Cardiac-regular rate and rhythm, normal S1 and S2 Abdomen-normal bowel sounds, no hepatosplenomegaly GUrecently placed suprapubic catheter is working without incident. No hematuria Extremities-no cyanosis, clubbing, or edema Neuro-cranial nerves II through XII intact, motor and sensory function within no rmal limits, strength symmetrical with generalized weakness, no focal deficits Psych-normal affect, normal mood Discharge Plan Discharge Items Patient Disposition: Transfer Residential Fac Reason For Visit: N/V/D,DKA Discharge Diagnosis: Mild DKA, hypokalemia, chronic bladder dysfunction requiring suprapubic catheter placement Activity: Per Instructions section Non-emergency contact: Primary Care Provider Call non-emergency contact if: your symptoms worsen Follow-up/Referrals: Aileen Koenig MD [Primary Care Provider] - Diet: Carb Consistent or DM2 Addtl Attending Provider Instructions: Follow-up with primary care provider soon as possible after discharge from [facility] Pending Studies at Discharge: No Stand-Alone Forms: My [facility] Skilled Items Patient informed of condition?: Yes DNR: No Discharge Level of Care: Skilled Communicable Disease: No Discharge Prognosis: Stable Lines: None Urinary Catheter: No Medications and DC Order Prescriptions: New potassium chloride 20 mEq Tablet,Er Particles/Crystals 20 meq PO BID Qty: 30 0RF docusate sodium 100 mg Capsule 100 mg PO BID Qty: 0 0RF polyethylene glycol 3350 [Miralax] 17 gram Powder In Packet 17 g PO DAILY PRN (Reason: constipation) Qty: 0 0RF Continued losartan 50 mg tablet 50 mg PO QAM Qty: 90 3RF esomeprazole magnesium [Nexium] 40 mg capsule,delayed release(DR/EC) 40 mg PO BID Qty: 180 5RF glimepiride 1 mg tablet 0.5 mg PO QAM Premarin 1.25 mg tablet 1.25 mg PO HS Mounjaro 2.5 mg/0.5 mL pen injector 2.5 mg subcut WK clonidine HCl 0.1 mg tablet 0.1 mg PO BID amlodipine 5 mg tablet 5 mg PO BID simvastatin 40 mg tablet 40 mg PO HS cholecalciferol (vitamin D3) [Vitamin D3] 1,000 unit Tablet 1,000 unit PO HS Januvia 100 mg tablet 100 mg PO QAM insulin glargine [Lantus U-100 Insulin] 100 unit/mL Solution 10 unit SUBCUT QAM insulin glargine [Lantus U-100 Insulin] 100 unit/mL Solution 20 unit SUBCUT HS ibuprofen [Ibuprofen IB] 200 mg Tablet 200 mg PO BID Discharge Orders: Discharge Order (Routine); Ordered 06/21/24 Ordered By: Ortiz Lockett Admission Data Admit Date/Time: 06/11/24 17:54 Attending Provider: Ortiz Lockett Admit Provider: Morgan Bettencourt V. Primary Care Provider: Aileen Koneig Other Providers: Lorenza Marshall; [place],[facility]; [facility] Stay Data Consultations 06/11/24 16:37 ED Decision to Admit Stat Diagnostic Imagining Performed 06/11/24 14:45 CT Abd and Pelvis [CT abd pelvis wo con] Stat Pending Results Patient Have Any Pending Studies at Discharge: No Discharge Instructions Given to Patient (Per Discharging Provider) Follow-up with primary care provider soon as possible after discharge from [facility] Total Time Total Time Spent Total Time Spent (In Minutes): 45 minutes Coding Level of Care Code 22455 INP/OBS DISCH >30 MIN Diagnoses Diabetic ketoacidosis without coma associated with type 2 diabetes mellitus E11.10 Diabetes mellitus type: type 2 Diabetes mellitus complication detail: without coma Abdominal pain, LLQ (left lower quadrant) R10.32 Hypertensive urgency I16.0 Colitis K52.9 Chronic kidney disease, stage 3 N18.3 Hypokalemia E87.6
[2024-06-21 15:10] VITALS: BP 167/80; PULSE 82
== END 2024-06-21 15:11 | DRG 391 ==
LOC: ED 13:37 → SUATTDRO 17:54 → 2E 17:54 → 3W 06-15 16:22 → 3N 06-19 22:31